=== PATIENT | female | born 1935 | race Caucasian/White ===

== ENCOUNTER → 2017-03-09 | Outpatient (CLI) | payer MEDICARE, OTHER ==
[2016-04-27 12:45] VITALS: BMI 20.2
[~2017-03-09] MED LIST: ACET-1748 PO; ACET-2007 PO; AMLO-96 PO; ASP325 PO; AZI250 PO; CEFU250 PO; CHOL10005 PO; CLI150 PO; DEN60I SUBQ; DESV50TA9 PO; DEXL60CA6 PO; DIA5 PO; DIG125 PO; DOC100 PO; DOCU-202 PO; DOXY-181 PO; DUL30 PO; DYA PO; ESOM40CA42 PO; EST625 PO; ESTR1.2525 PO; FLU45SYR25 IM ONLY; FURO-45 PO; FURO20TA19 PO; GAB300 PO; GABA25PO16; GUALA600 PO; IBU800 PO; LEV112 PO; LEV125 PO; LEV137 PO; LEVO-3 PO; LEVO112T43 PO; LEVO125T77 PO; LEVO137T21 PO; LEVO88TA45 PO; LID5T TP; LOR10/500 PO; LOR5 PO; LOR7.5/325 PO; MELO-207 PO; METO-1 PO; MIRT7.5T2 PO; MOMR ENA; MULT-1335 PO; OND4 PO; ONDA4TAB PO; ONDA4TAB97 PO; OSC600 PO; OXYC-373 PO; OXYC-374 PO; OXYC-375 PO; OXYC-865 PO; OXYC5TAB38 PO; OXYGEN INH; PAN40 PO; PANT40TA65 PO; PER PO; POLY17PO25 PO; POT20 PO; POTA-23 PO; POTA20TA94 PO; PRE10 PO; PROM-110 PO; PROM12.556 PO; PROM25SU9 RC; SIM10 PO; SIMV10TA98 PO; SUCR1ORA13 PO; SUCR1TAB51 PO; SUCR1TAB85 PO; SULF-198 PO; TEMA-1 PO; TRAM-420 PO; TRAM-627 PO; TRAZ50 PO; TRIA-20 PO; VALIUM; VARE1TAB18 PO; ZOLP-350 PO; [UNRECOGNIZED DRUG - CODE] PO; [UNRECOGNIZED DRUG - OTHER]
== END ==
LOC: AMB 11:30
PROVIDERS: ATTEND Nurse Practitioner
DX: R53.81 Other malaise (principal); R09.02 Hypoxemia
CPT/HCPCS: A0425; A0427

== ENCOUNTER → 2017-03-09 | Outpatient (CLI) | payer MEDICARE, OTHER ==
[2016-04-27 12:45] VITALS: BMI 20.2
== END ==
LOC: AMB 17:00
PROVIDERS: ATTEND Nurse Practitioner
DX: R79.89 Other specified abnormal findings of blood chemistry (principal); E87.6 Hypokalemia; J18.9 Pneumonia, unspecified organism
CPT/HCPCS: A0425; A0426; A0888

== ENCOUNTER → 2017-03-24 | Outpatient (CLI) | payer MEDICARE, OTHER ==
[2016-04-27 12:45] VITALS: BMI 20.2
[~2017-03-24] MED LIST changes: +ALBU8.5H IH; +CAR6.25 PO; +LISI-362 PO; +MIRT-27 PO; +ONDA4TAB9 PO; +UMEC1DIS INH
[2017-03-24 15:09] LABS: PLATELET COUNT, AUTOMATED 497 K/uL (150-450)
--- NOTE | 2017-03-24 15:34 | RADIOLOGY IMAGING REPORT ---
FACILITY: [facility] PATIENT NAME: Yanelis Leong : 1935 MR: [id number] V: [id number] EXAM DATE: ORDERING PHYSICIAN: ELIAS BARNES TECHNOLOGIST: Location: [facility] - [place] Patient: Yanelis Leong : 1935 Visit/Account:[id number] Date of Sevice: 03/24/2017 Exam type: CHEST PA AND LAT History: COPD, dehydration, hypothyroidism, pneumonia, CHF, smoker Comparison: March 09, 2017. Findings: Patchy consolidation in the right upper lobe appears slightly improved. There appears to be residual fibrotic changes which may be postsurgical or postradiation in nature. The appearance is similar to the prior study from April 26, 2016. Postsurgical changes of the right hilum and right hilar prom inence also appear stable. Emphysematous changes are noted throughout the lungs. The cardiac silhou ette is normal in size. There is an S-shaped scoliosis of the thoracal lumbar spine vertebroplasty c hanges in lumbar spine. Incompletely imaged are postsurgical changes lower lumbar spine as well IMPRESSION: 1. Chronic changes throughout the right lung with no evidence of acute pulmonary consolidation at th is time Report Dictated By: Natalia Cheung MD at 03/24/2017 3:27 PM Report E-Signed By: Natalia Cheung MD at 03/24/2017 3:30 PM WSN:[email or web address]
== END ==
LOC: LAB 14:06
PROVIDERS: ATTEND Internal Medicine
DX: E03.9 Hypothyroidism, unspecified (principal); R10.9 Unspecified abdominal pain; R60.9 Edema, unspecified; R09.02 Hypoxemia; J44.9 Chronic obstructive pulmonary disease, unspecified; J18.9 Pneumonia, unspecified organism; I50.9 Heart failure, unspecified
CPT/HCPCS: 36415; 71046; 81001; 82040; 82150; 82247; 82310; 82374; 82435; 82565; 82947; 83690; 83880; 84075; 84132; 84155; 84295; 84443; 84450; 84460; 84520; 85025

== ENCOUNTER → 2017-04-20 | Outpatient (CLI) | payer MEDICARE, OTHER ==
[2016-04-27 12:45] VITALS: BMI 20.2
[2017-04-20 15:47] LABS: PLATELET COUNT, AUTOMATED 413 K/uL (150-450)
== END ==
LOC: LAB 15:04
PROVIDERS: ATTEND Internal Medicine
DX: I50.9 Heart failure, unspecified (principal); K26.9 Duodenal ulcer, unspecified as acute or chronic, without hemorrhage or perforation; J44.9 Chronic obstructive pulmonary disease, unspecified; G89.29 Other chronic pain
CPT/HCPCS: 36415; 82040; 82247; 82310; 82374; 82435; 82565; 82947; 83880; 84075; 84132; 84155; 84295; 84443; 84450; 84460; 84520; 85025

== ENCOUNTER 2017-05-31 20:50 | Inpatient (IN) | payer MEDICARE, OTHER ==
[~2017-05-31] VITALS: Ht 162.6 cm; Wt 47.4 kg
[~2017-05-31 20:50] MED LIST changes: -ACET-2043 PO; -CELE100C79 PO; -LEVO50TA86 PO; -LIDO700A19 TP; -MELA3TAB31 PO
--- NOTE | 2017-05-31 20:53 | ER Report ---
History and Physical Time Seen By MD: 20:52 HPI/ROS CHIEF COMPLAINT: fall, right hip and leg pain HISTORY OF PRESENT ILLNESS: This is an 81 year old female. She slipped on some newspapers on her hardwood floors. Feet flew out from under her. Landed on right hip. Slightly hit head with small laceration by right eye. Did not lose consciousness. No neck or back pain. Normal sensation in extremities. No vision changes. No nausea or vomiting. REVIEW OF SYSTEMS: Constitutional: No weakness. Eyes: No visual changes or eye pain. ENT: No dental trauma. Respiratory: No chest wall pain, no shortness of breath. Cardiac: No palpitations. Gastrointestinal: No abdominal pain, no vomiting. Genitourinary: No hematuria. Musculoskeletal: As above. Skin: As above. Neurological: No headache. Allergies: Coded Allergies: codeine (Verified Allergy, Mild, UNKNOWN, 05/31/17) Patient states "That was so long ago" Home Meds Active Scripts Potassium Chloride (KLOR-CON 10) 10 Meq Tablet.er, 10 MEQ PO QODAY for with furosemide, #30 TAB 3 Refills Prov:YOLY SMITH MD 06/01/17 Furosemide (FUROSEMIDE) 20 Mg Tablet, 1 TAB PO QODAY, #30 TAB 3 Refills Prov:YOLY SMITH MD 06/01/17 Levothyroxine Sodium (LEVOTHYROXINE SODIUM) 100 Mcg Tablet, 100 MCG PO QDAY, # 30 TAB 6 Refills Prov:YOLY SMITH MD 06/01/17 Lisinopril (LISINOPRIL) 10 Mg Tablet, 10 MG PO QDAY, #30 TAB 5 Refills Prov:ELIAS BARNES MD 04/20/17 Carvedilol (CARVEDILOL) 6.25 Mg Tab, 0.5 TAB PO BID, #30 TAB 3 Refills Prov:ELIAS BARNES MD 04/20/17 Oxycodone Hcl (OXYCODONE HCL) 5 Mg Tablet, 5 MG PO QDAY Y for pain, #30 TAB Prov:ELIAS BARNES MD 04/20/17 Pantoprazole Sodium (PANTOPRAZOLE SODIUM) 40 Mg Tablet.dr, 40 MG PO QDAY, #30 TAB.SR 6 Refills Prov:ELIAS BARNES MD 04/20/17 Ondansetron (ONDANSETRON ODT) 4 Mg Tab.rapdis, 4 MG PO Q8H Y for nausea vomiting , #30 TAB 2 Refills Prov:ELIAS BARNES MD 03/24/17 Albuterol Sulfate 90 Mcg/Act (PROAIR HFA 90 MCG/ACT) 8.5 Gm Hfa.aer.ad, 2 PUFF IH Q4-6H Y for SHORTNESS OF BREATH, #1 INHALER 3 Refills Prov:ELIAS BARNES MD 03/24/17 Umeclidinium Brm/Vilanterol Tr (Anoro Ellipta 62.5-25 Mcg INH) 1 Each Disk.w.dev , 1 PUFF INH QDAY, #1 INHALER 6 Refills Prov:ELIAS BARNES MD 03/24/17 Reviewed Nurses Notes: Yes Hx Smoking: Yes (1/2-1 PACK DAILY) Smoking Status: Current: Every Day Smoker, Heavy Tobacco Smoker Exposure to Second Hand Smoke?: No Hx Substance Use Disorder: No Hx Alcohol Use: Yes Constitutional Vital Sign - Last 24 Hours 05/31/17 05/31/17 05/31/17 05/31/17 20:55 21:00 21:15 22:24 Temp 98.7 Pulse 141 116 124 Resp 16 24 15 22 B/P (MAP) 127/111 106/91 (96) 122/86 (98) Pulse Ox 92 100 95 O2 Delivery Nasal Cannula Nasal Cannula O2 Flow Rate 4 06/01/17 00:06 Pulse 116 Resp 14 B/P (MAP) 126/86 (99) Pulse Ox 94 O2 Delivery Nasal Cannula O2 Flow Rate 4 Physical Exam General Appearance: The patient is alert, has no immediate need for airway protection and no current signs of toxicity. Eyes: Pupils equal and round, no injection. ENT: No dental or oral trauma. Mucous membranes very dry. Tympanic membranes normal bilaterally Respiratory: Chest is non tender to palpation. Cardiac: Regular rate and rhythm. Gastrointestinal: Soft and non tender, there is no evidence of external or internal trauma by exam. Neurological: GCS 15. Alert and oriented x4. No focal deficits. Normal sensation in the right leg, has normal range of motion foot, ankle, but upper joints not tested due to pain in hip. Skin: No laceration or abrasions. Musculoskeletal: Head: Atraumatic without scalp tenderness. Neck: The cervical spine is non-tender and there is no pain with active range of motion. Back: There is no thoracic or lumbar spine or paraspinal tenderness. Pelvis: Non-tender, no laxity with pelvic pressure. Extremities: There is pain in the right hip and femur. No deformity or rotation noted. DIFFERENTIAL DIAGNOSIS: After history and physical exam differential diagnosis was considered for trauma from a fall. Concern for right hip/femur injury. Head injury with slight laceration as well. Medical Decision Making Data Points Result Diagram: 05/31/17 2348 05/31/17 2348 Laboratory Hematology Test 05/31/17 23:48 Red Blood Count 3.03 M/uL (4.17-5.56) Mean Corpuscular Volume 93.7 fL (80.0-96.0) Mean Corpuscular Hemoglobin 31.3 pg (26.0-33.0) Mean Corpuscular Hemoglobin Concent 33.4 g/dL (32.0-36.0) Red Cell Distribution Width 14.9 % (11.5-14.5) Mean Platelet Volume 7.9 fL (7.2-11.1) Neutrophils (%) (Auto) 88.5 % (39.4-72.5) Lymphocytes (%) (Auto) 5.3 % (17.6-49.6) Monocytes (%) (Auto) 5.8 % (4.1-12.4) Eosinophils (%) (Auto) 0.1 % (0.4-6.7) Basophils (%) (Auto) 0.3 % (0.3-1.4) Nucleated RBC Relative Count (auto) 0.1 /100WBC Neutrophils # (Auto) 12.8 K/uL (2.0-7.4) Lymphocytes # (Auto) 0.8 K/uL (1.3-3.6) Monocytes # (Auto) 0.8 K/uL (0.3-1.0) Eosinophils # (Auto) 0.0 K/uL (0.0-0.5) Basophils # (Auto) 0.0 K/uL (0.0-0.1) Nucleated RBC Absolute Count (auto) 0.01 K/uL Sodium Level 140 mmol/L (137-145) Potassium Level 2.3 mmol/L (3.5-5.0) Chloride Level 86 mmol/L (98-107) Carbon Dioxide Level 45 mmol/L (22-31) Blood Urea Nitrogen 15 mg/dl (7-18) Creatinine 1.00 mg/dl (0.52-1.04) Glomerular Filtration Rate Calc 53.2 Random Glucose 125 mg/dl (75-110) Calcium Level 8.0 mg/dl (8.4-10.2) Total Bilirubin 1.2 mg/dl (0.2-1.3) Aspartate Amino Transf (AST/SGOT) 61 U/L (0-35) Alanine Aminotransferase (ALT/SGPT) 52 U/L (0-56) Alkaline Phosphatase 222 U/L (0-126) Total Protein 6.5 gm/dl (6.3-8.2) Albumin 2.7 g/dl (3.5-5.0) Serum Alcohol < 10 mg/dl Chemistry Test 05/31/17 23:48 White Blood Count 14.4 k/uL (4.5-11.0) Red Blood Count 3.03 M/uL (4.17-5.56) Hemoglobin 9.5 g/dL (12.0-16.0) Hematocrit 28.4 % (34.0-47.0) Mean Corpuscular Volume 93.7 fL (80.0-96.0) Mean Corpuscular Hemoglobin 31.3 pg (26.0-33.0) Mean Corpuscular Hemoglobin Concent 33.4 g/dL (32.0-36.0) Red Cell Distribution Width 14.9 % (11.5-14.5) Platelet Count 388 K/uL (150-450) Mean Platelet Volume 7.9 fL (7.2-11.1) Neutrophils (%) (Auto) 88.5 % (39.4-72.5) Lymphocytes (%) (Auto) 5.3 % (17.6-49.6) Monocytes (%) (Auto) 5.8 % (4.1-12.4) Eosinophils (%) (Auto) 0.1 % (0.4-6.7) Basophils (%) (Auto) 0.3 % (0.3-1.4) Nucleated RBC Relative Count (auto) 0.1 /100WBC Neutrophils # (Auto) 12.8 K/uL (2.0-7.4) Lymphocytes # (Auto) 0.8 K/uL (1.3-3.6) Monocytes # (Auto) 0.8 K/uL (0.3-1.0) Eosinophils # (Auto) 0.0 K/uL (0.0-0.5) Basophils # (Auto) 0.0 K/uL (0.0-0.1) Nucleated RBC Absolute Count (auto) 0.01 K/uL Glomerular Filtration Rate Calc 53.2 Calcium Level 8.0 mg/dl (8.4-10.2) Total Bilirubin 1.2 mg/dl (0.2-1.3) Aspartate Amino Transf (AST/SGOT) 61 U/L (0-35) Alanine Aminotransferase (ALT/SGPT) 52 U/L (0-56) Alkaline Phosphatase 222 U/L (0-126) Total Protein 6.5 gm/dl (6.3-8.2) Albumin 2.7 g/dl (3.5-5.0) Serum Alcohol < 10 mg/dl Toxicology Test 05/31/17 23:48 Serum Alcohol < 10 mg/dl EKG/Imaging Imaging CHEST SINGLE AP Indication: Fall. Comparison: March 24, 2017. Findings: Heart size within normal limits. Calcification within the aortic knob. There is no focal infiltrate or lobar consolidation. No pneumothorax or pleural effusion. Chronic interstitial changes with biapical pleural scarring, right greater than left. Chronic elevation of the right hemidiaphragm. Note is made of kyphoplasty/vertebroplasty changes within the lumbar spine. No gross acute osseous abnormality. IMPRESSION: 1. No acute cardiopulmonary process. 2. Chronic findings, as above. Report Dictated By: Antoni Crain MD at 05/31/2017 10:25 PM HEAD W/O CONTRAST, C-SPINE W/O CONTRAST CT BRAIN WITHOUT CONTRAST CLINICAL INDICATION: Fall. COMPARISON: CT head dated March 09, 2017. TECHNIQUE: Contiguous axial CT images of the brain and cervical spine were obtained without IV contrast. Sagittal and coronal reformatted images were also performed. One of the following dose optimization techniques was utilized in the performance of this exam: Automated exposure control; adjustment of the mA and/ or kV according to the patient's size; or use of an iterative reconstruction technique. Specific details can be referenced in the facility's radiology CT exam operational policy. FINDINGS: BRAIN: BRAIN:Prominence of the ventricles and sulci is consistent with atrophy. There are areas of low attenuation in the periventricular and subcortical white matter which are nonspecific, but suggestive of chronic microvascular ischemic change. The brainstem and cerebellum appear normal. The basilar cisterns appear normal. There is no mass, acute infarct, hemorrhage or shift of midline. Vascular atherosclerotic calcifications are present. PARANASAL SINUSES & MASTOIDS: Mild/moderate mucosal thickening within the ethmoid air cells, sphenoid sinus, and right maxillary sinus. There is an air- fluid level within the sphenoid sinus. Note is made of a left maxillary antrostomy.. SKULL BASE & CRANIUM: Visualized osseous structures are intact. SOFT TISSUES: No soft tissue swelling or hematoma is appreciated. CERVICAL SPINE: Alignment: Normal. Cranio-cervical junction: Negative. Vertebral bodies: Negative. Posterior elements: Negative. Hardware: None. Disc Spaces: Multilevel mild degenerative disc disease and facet arthropathy. Soft tissues: Negative. Visualized upper chest: Moderate biapical pleural scarring. Mild/moderate emphysematous changes within the visualized upper lobes. IMPRESSION 1. No acute findings of the head or cervical spine.. 2. Findings of advanced chronological age. Report Dictated By: Antoni Crain MD at 05/31/2017 10:21 PM HIP RIGHT, FEMUR RIGHT Indication: Follow-up right hip and leg pain. Comparison: Hip radiographs dated March 09, 2017. Findings: There is no acute fracture or dislocation of the right hip or right femur. There is a mildly comminuted fracture of the superior right pubic ramus without significant displacement. Questionable subtle nondisplaced fracture of the inferior pubic ramus. There are possible chronic bilateral inferior pubic rami fractures. Degenerative changes within the lumbar spine. Fusion hardware within the lower lumbar spine. IMPRESSION: 1. Mildly comminuted fracture of the superior right pubic ramus. 2. Questionable subtle nondisplaced fracture of the inferior right pubic ramus. 3. No visualized fractures of the right hip or femur. Report Dictated By: Antoni Crain MD at 05/31/2017 10:10 PM ED Course/Re-evaluation ED Course Images were obtained. CT scan of the head and cervical spine were negative. Chest x-ray with no acute cardiopulmonary processes. Right hip and right femur showed a inferior and superior right pubic rami fractures, but negative for hip fracture. After these were obtained, we gave the patient a Lortab to help with pain and then after a while attempted to have her walk with a walker. She was able to stand and sit in a chair but is unable to walk because of instability and pain. I called and spoke with Dr. Smith who agreed to admit the patient. We will get some basic labs and a urinalysis. Procedure: Laceration Repair Verbal consent from patient after discussing repair options, risks and benefits. Wound cleaned extensively with Hibiclens and saline. Anesthesia: Local 1% lidocaine without epinephrine. Location: Lateral right eyebrow. Length: 2 cm. Character: Jagged. Wound repair: 3 interrupted 5-0 Prolene sutures. The wound repair was simple and performed by myself. Wound care instructions discussed. Sutures need to be removed in 7 days. Tetanus booster given. Labs were obtained and showed a low potassium. Called and discussed this with Dr. Smith who will begin treatment for this on the medical floor. Decision to Disposition Date: May 31, 2017 Decision to Disposition Time: 23:25 Depart Departure Latest Vital Signs Vital Signs Date Time Temp Pulse Resp B/P (MAP) Pulse Ox O2 Delivery O2 Flow Rate FiO2 06/01/17 00:06 116 14 126/86 (99) 94 Nasal Cannula 4 05/31/17 20:55 98.7 Impression: Primary Impression: Fracture of superior pubic ramus Additional Impressions: Fracture of inferior pubic ramus Fall from standing Laceration of eyebrow Condition: Improved Disposition: Admitted from ER Referrals: ELIAS BARNES MD (PCP) New Scripts Potassium Chloride (KLOR-CON 10) 10 Meq Tablet.er 10 MEQ PO QODAY for with furosemide, #30 TAB 3 Refills Prov: YOLY SMITH MD 06/01/17 Furosemide (FUROSEMIDE) 20 Mg Tablet 1 TAB PO QODAY, #30 TAB 3 Refills Prov: YOLY SMITH MD 06/01/17 Levothyroxine Sodium (LEVOTHYROXINE SODIUM) 100 Mcg Tablet 100 MCG PO QDAY, #30 TAB 6 Refills Prov: YOLY SMITH MD 06/01/17 Problem Qualifiers Primary Impression: Fracture of superior pubic ramus Encounter type: initial encounter Fracture type: closed Laterality: right Qualified Codes: S32.511A - Fracture of superior rim of right pubis, initial encounter for closed fracture Additional Impressions: Fracture of inferior pubic ramus Encounter type: initial encounter Fracture type: closed Laterality: right Qualified Codes: S32.591A - Other specified fracture of right pubis, initial encounter for closed fracture Fall from standing Encounter type: initial encounter Qualified Codes: W19.XXXA - Unspecified fall, initial encounter Laceration of eyebrow Encounter type: initial encounter Laterality: right Qualified Codes: S01.111A - Laceration without foreign body of right eyelid and periocular area, initial encounter PRADEEP POWELL MD May 31, 2017 20:53
--- NOTE | 2017-05-31 22:22 | RADIOLOGY IMAGING REPORT ---
FACILITY: [facility] - [place] PATIENT NAME: Yanelis Leong : 1935 MR: [id number] V: [id number] EXAM DATE: ORDERING PHYSICIAN: PRADEEP POWELL TECHNOLOGIST: Location: [facility] - [place] Patient: Yanelis Leong : 1935 Visit/Account:[id number] Date of Sevice: 05/31/2017 HIP RIGHT, FEMUR RIGHT Indication: Follow-up right hip and leg pain. Comparison: Hip radiographs dated March 09, 2017. Findings: There is no acute fracture or dislocation of the right hip or right femur. There is a mildly comminut ed fracture of the superior right pubic ramus without significant displacement. Questionable subtle n ondisplaced fracture of the inferior pubic ramus. There are possible chronic bilateral inferior pubic rami fractures. Degenerative changes within the lumbar spine. Fusion hardware within the lower lumbar spine. IMPRESSION: 1. Mildly comminuted fracture of the superior right pubic ramus. 2. Questionable subtle nondisplaced fracture of the inferior right pubic ramus. 3. No visualized fractures of the right hip or femur. Report Dictated By: Antoni Crain MD at 05/31/2017 10:10 PM Report E-Signed By: Antoni Crain MD at 05/31/2017 10:17 PM WSN:[id number]
--- NOTE | 2017-05-31 22:23 | RADIOLOGY IMAGING REPORT ---
FACILITY: [facility] - [place] PATIENT NAME: Yanelis Leong : 1935 MR: [id number] V: [id number] EXAM DATE: ORDERING PHYSICIAN: PRADEEP POWELL TECHNOLOGIST: Location: [facility] [place] Patient: Yanelis Leong : 1935 Visit/Account:[id number] Date of Sevice: 05/31/2017 HIP RIGHT, FEMUR RIGHT Indication: Follow-up right hip and leg pain. Comparison: Hip radiographs dated March 09, 2017. Findings: There is no acute fracture or dislocation of the right hip or right femur. There is a mildly comminut ed fracture of the superior right pubic ramus without significant displacement. Questionable subtle n ondisplaced fracture of the inferior pubic ramus. There are possible chronic bilateral inferior pubic rami fractures. Degenerative changes within the lumbar spine. Fusion hardware within the lower lumbar spine. IMPRESSION: 1. Mildly comminuted fracture of the superior right pubic ramus. 2. Questionable subtle nondisplaced fracture of the inferior right pubic ramus. 3. No visualized fractures of the right hip or femur. Report Dictated By: Antoni Crain MD at 05/31/2017 10:10 PM Report E-Signed By: Antoni Crain MD at 05/31/2017 10:17 PM WSN:[id number]
--- NOTE | 2017-05-31 22:29 | RADIOLOGY IMAGING REPORT ---
FACILITY: [facility] PATIENT NAME: Yanelis Leong : 1935 MR: [id number] V: [id number] EXAM DATE: ORDERING PHYSICIAN: PRADEEP POWELL TECHNOLOGIST: Location: [facility] [place] Patient: Yanelis Leong : 1935 Visit/Account:[id number] Date of Sevice: 05/31/2017 HEAD W/O CONTRAST, C-SPINE W/O CONTRAST CT BRAIN WITHOUT CONTRAST CLINICAL INDICATION: Fall. COMPARISON: CT head dated March 09, 2017. TECHNIQUE: Contiguous axial CT images of the brain and cervical spine were obtained without IV contra st. Sagittal and coronal reformatted images were also performed. One of the following dose optimization techniques was utilized in the performance of this exam: Autom ated exposure control; adjustment of the mA and/or kV according to the patient's size; or use of an i terative reconstruction technique. Specific details can be referenced in the facility's radiology C T exam operational policy. FINDINGS: BRAIN: BRAIN:Prominence of the ventricles and sulci is consistent with atrophy. There are areas of low atten uation in the periventricular and subcortical white matter which are nonspecific, but suggestive of c hronic microvascular ischemic change. The brainstem and cerebellum appear normal. The basilar cister ns appear normal. There is no mass, acute infarct, hemorrhage or shift of midline. Vascular atheroscl erotic calcifications are present. PARANASAL SINUSES & MASTOIDS: Mild/moderate mucosal thickening within the ethmoid air cells, sphenoid sinus, and right maxillary sinus. There is an air-fluid level within the sphenoid sinus. Note is mad e of a left maxillary antrostomy.. SKULL BASE & CRANIUM: Visualized osseous structures are intact. SOFT TISSUES: No soft tissue swelling or hematoma is appreciated. CERVICAL SPINE: Alignment: Normal. Cranio-cervical junction: Negative. Vertebral bodies: Negative. Posterior elements: Negative. Hardware: None. Disc Spaces: Multilevel mild degenerative disc disease and facet arthropathy. Soft tissues: Negative. Visualized upper chest: Moderate biapical pleural scarring. Mild/moderate emphysematous changes withi n the visualized upper lobes. IMPRESSION 1. No acute findings of the head or cervical spine.. 2. Findings of advanced chronological age. Report Dictated By: Antoni Crain MD at 05/31/2017 10:21 PM Report E-Signed By: Antoni Crain MD at 05/31/2017 10:25 PM WSN:[id number]
--- NOTE | 2017-05-31 22:29 | RADIOLOGY IMAGING REPORT ---
FACILITY: [facility] PATIENT NAME: Yaenlis Leong : 1935 MR: [id number] V: [id number] EXAM DATE: ORDERING PHYSICIAN: PRADEEP POWELL TECHNOLOGIST: Location: [facility] Patient: Yanelis Leong : 1935 Visit/Account:[id number] Date of Sevice: 05/31/2017 HEAD W/O CONTRAST, C-SPINE W/O CONTRAST CT BRAIN WITHOUT CONTRAST CLINICAL INDICATION: Fall. COMPARISON: CT head dated March 09, 2017. TECHNIQUE: Contiguous axial CT images of the brain and cervical spine were obtained without IV contra st. Sagittal and coronal reformatted images were also performed. One of the following dose optimization techniques was utilized in the performance of this exam: Autom ated exposure control; adjustment of the mA and/or kV according to the patient's size; or use of an i terative reconstruction technique. Specific details can be referenced in the facility's radiology C T exam operational policy. FINDINGS: BRAIN: BRAIN:Prominence of the ventricles and sulci is consistent with atrophy. There are areas of low atten uation in the periventricular and subcortical white matter which are nonspecific, but suggestive of c hronic microvascular ischemic change. The brainstem and cerebellum appear normal. The basilar cister ns appear normal. There is no mass, acute infarct, hemorrhage or shift of midline. Vascular atheroscl erotic calcifications are present. PARANASAL SINUSES & MASTOIDS: Mild/moderate mucosal thickening within the ethmoid air cells, sphenoid sinus, and right maxillary sinus. There is an air-fluid level within the sphenoid sinus. Note is mad e of a left maxillary antrostomy.. SKULL BASE & CRANIUM: Visualized osseous structures are intact. SOFT TISSUES: No soft tissue swelling or hematoma is appreciated. CERVICAL SPINE: Alignment: Normal. Cranio-cervical junction: Negative. Vertebral bodies: Negative. Posterior elements: Negative. Hardware: None. Disc Spaces: Multilevel mild degenerative disc disease and facet arthropathy. Soft tissues: Negative. Visualized upper chest: Moderate biapical pleural scarring. Mild/moderate emphysematous changes withi n the visualized upper lobes. IMPRESSION 1. No acute findings of the head or cervical spine.. 2. Findings of advanced chronological age. Report Dictated By: Antoni Crain MD at 05/31/2017 10:21 PM Report E-Signed By: Antoni Crain MD at 05/31/2017 10:25 PM WSN:[email or web address]
--- NOTE | 2017-05-31 22:30 | RADIOLOGY IMAGING REPORT ---
FACILITY: [facility] [place] PATIENT NAME: Yanelis Leong : 1935 MR: [id number] V: [id number] EXAM DATE: ORDERING PHYSICIAN: PRADEEP POWELL TECHNOLOGIST: Location: [facility] [place] Patient: Yanelis Leong : 1935 Visit/Account:[id number] Date of Sevice: 05/31/2017 CHEST SINGLE AP Indication: Fall. Comparison: March 24, 2017. Findings: Heart size within normal limits. Calcification within the aortic knob. There is no focal infiltrate or lobar consolidation. No pneumothorax or pleural effusion. Chronic interstitial changes with biapical pleural scarring, ri ght greater than left. Chronic elevation of the right hemidiaphragm. Note is made of kyphoplasty/vertebroplasty changes within the lumbar spine. No gross acute osseous abnormality. IMPRESSION: 1. No acute cardiopulmonary process. 2. Chronic findings, as above. Report Dictated By: Antoni Crain MD at 05/31/2017 10:25 PM Report E-Signed By: Antoni Crain MD at 05/31/2017 10:26 PM WSN:[email or web address]
[2017-05-31] MEDS ORDERED: APAP/HYDROCODONE 325/5 TAB PO ONE (22:35)
[2017-05-31] MEDS ORDERED: DIPHTH/TETANUS/ACEL. PERTUSSIS IM ONLY ONE (23:45)
[2017-05-31 23:57] LABS: PLATELET COUNT, AUTOMATED 388 K/uL (150-450)
[2017-06-01] VITALS (7 sets, daily range): BP systolic 94–116; BP diastolic 48–75; Ht 162.6 cm; Wt 47.4 kg
[2017-06-01] MEDS ORDERED: ACETAMINOPHEN 325 MG TAB PO PRN (01:20)
[2017-06-01] MEDS ORDERED: INFLUENZA VIRUS VAC 0.5 ML SYR IM ONLY ONE (01:20)
--- NOTE | 2017-06-01 01:40 | History & Physical ---
History of Present Illness Chief Complaint Fall, R leg/hip pain. History of Present Illness The patient is an 81 year old female who states that she slipped on newspaper lying on her hardwood floor this evening and fell, injuring her R leg. She crawled to her bedroom and called for help. She denies chest pain, dizziness, palpitations or lightheadedness prior to falling. She was transferred to [facility] ER. Work up revealed fractures of the pelvis. The patient was recommended for admission. The patient was found to be significantly hypokalemic at 2.3. When she arrived on the medical floor she was found to be in new onset a fib with RVR. History Problems: (1) COPD (chronic obstructive pulmonary disease) Status: Chronic (2) Edema Status: Chronic (3) Hyperlipidemia Status: Chronic (4) GERD (gastroesophageal reflux disease) Status: Chronic (5) Sleep apnea Status: Chronic (6) Peripheral neuropathy Status: Chronic (7) Irritable bowel syndrome Status: Chronic (8) Hypoxia Status: Chronic (9) Depression Status: Chronic (10) Hypertension Status: Chronic (11) Hypothyroid Status: Chronic (12) Tobacco abuse (13) CHF (congestive heart failure) Status: Chronic (14) Elevated liver enzymes Status: Chronic (15) History of alcohol abuse Status: Chronic (16) Alcoholic dementia Status: Chronic (17) Diastolic CHF, chronic Status: Chronic Home Meds Active Scripts Levothyroxine Sodium (LEVOTHYROXINE SODIUM) 100 Mcg Tablet, 75 MCG PO QDAY, #30 TAB 6 Refills Prov:ELIAS BERNSTEIN MD 04/21/17 Potassium Chloride (KLOR-CON 10) 10 Meq Tablet.er, 10 MEQ PO QODAY for with furosemide, #30 TAB 3 Refills 1 every day for 3 days then every other day Prov:ELIAS BERNSTEIN MD 04/20/17 Furosemide (FUROSEMIDE) 20 Mg Tablet, 1 TAB PO QODAY Y for edema, #30 TAB 3 Refills Prov:ELIAS BERNSTEIN MD 04/20/17 Lisinopril (LISINOPRIL) 10 Mg Tablet, 10 MG PO QDAY, #30 TAB 5 Refills Prov:ELIAS BERNSTEIN MD 04/20/17 Carvedilol (CARVEDILOL) 6.25 Mg Tab, 0.5 TAB PO BID, #30 TAB 3 Refills Prov:ELIAS BERNSTEIN MD 04/20/17 Oxycodone Hcl (OXYCODONE HCL) 5 Mg Tablet, 5 MG PO QDAY Y for pain, #30 TAB Prov:ELIAS BERNSTEIN MD 04/20/17 Pantoprazole Sodium (PANTOPRAZOLE SODIUM) 40 Mg Tablet.dr, 40 MG PO QDAY, #30 TAB.SR 6 Refills Prov:ELIAS BERNSTEIN MD 04/20/17 Ondansetron (ONDANSETRON ODT) 4 Mg Tab.rapdis, 4 MG PO Q8H Y for nausea vomiting , #30 TAB 2 Refills Prov:ELIAS BERNSTEIN MD 03/24/17 Albuterol Sulfate 90 Mcg/Act (PROAIR HFA 90 MCG/ACT) 8.5 Gm Hfa.aer.ad, 2 PUFF IH Q4-6H Y for SHORTNESS OF BREATH, #1 INHALER 3 Refills Prov:ELIAS BERNSTEIN MD 03/24/17 Umeclidinium Brm/Vilanterol Tr (Anoro Ellipta 62.5-25 Mcg INH) 1 Each Disk.w.dev , 1 PUFF INH QDAY, #1 INHALER 6 Refills Prov:ELIAS BERNSTEIN MD 03/24/17 Allergies: Coded Allergies: codeine (Verified Allergy, Mild, UNKNOWN, 05/31/17) Patient states "That was so long ago" Patient History: Cardiac disorder SISTER (Heart valve problem), , Age:29 Cerebrovascular accident (CVA) BROTHER OR SISTER, , Age:82 FH: AR (myocardial infarction) BROTHER OR SISTER FH: Parkinson's disease FH: cancer BROTHER OR SISTER, , Age:37 FH: suicide BROTHER OR SISTER, , Age:30's - 40 BROTHER OR SISTER, , Age:30's - 40 Neurological disease No family history of disorders CHILD Systemic lupus erythematosus CHILD No Family History of: FH: alcohol abuse FH: coronary artery bypass surgery FH: emphysema FHx: diabetes mellitus Other Social/Family Hx The patient is and lives alone in [place]. Hx Smoking: Yes (1 PACK DAILY) Smoking Status: Current: Every Day Smoker, Heavy Tobacco Smoker Exposure to Second Hand Smoke?: No Caffeine Intake: Coffee Caffeine/Cups Per Day: OCCAISIONALLY Hx Alcohol Use: Yes Hx Substance Use Disorder: No Social Drug Use: Never History of IV Drug Use: No Review of Systems All Systems Reviewed/Normal: Yes, Except as Noted Neurological: No Dizziness Eyes: No Vision Change ENT: No Hearing Loss Cardiovascular: Other (Lower extremitity edema.), No Chest Pain, No Palpitations Respiratory: No Shortness of Breath Gastrointestinal: No Nausea, No Vomiting, No Diarrhea Genitourinary: No Dysuria Musculoskeletal: Pain (Back, chronic. New pain in R leg after fall tonight.) Psychiatric: Depression Exam Vital Signs Vital Signs Date Time Temp Pulse Resp B/P (MAP) Pulse Ox O2 Delivery O2 Flow Rate FiO2 06/01/17 00:31 98.2 92 14 103/68 (80) 100 Nasal Cannula 4.0 General Appearance: Alert, Awake, No Acute Distress, Afebrile Neuro: No Gross deficits Eyes: PERRLA ENT: Other (Lips are dry. ) Neck: No Masses Cardiovascular: No JVD, Other (Irregularly irregular, tachycardic.) Respiratory: No Respiratory Distress, Clear to Auscultation GI: Abd Soft and Non-Tender Extremities: Warm, Perfused, Edema (Feet and ankles with pitting edema. ) Integumentary: Generalized Fragile Skin Psych: Alert & Oriented X3, Appropriate Mood & Affect Medical Decision Making Data Points Result Diagram: 05/31/178 05/31/172347 Item Value Date Time Calcium Level 8.0 mg/dl L 05/31/172347 Total Bilirubin 1.2 mg/dl 05/31/178 Aspartate Amino Transf (AST/SGOT) 61 U/L H 05/31/178 Alanine Aminotransferase (ALT/SGPT) 52 U/L 05/31/178 Alkaline Phosphatase 222 U/L H 05/31/178 Total Protein 6.5 gm/dl 05/31/178 Albumin 2.7 g/dl L 05/31/172347 Serum Alcohol < 10 mg/dl 05/31/172347 EKG / Imaging Imaging [place] [facility] [place] NAME: Yanelis Leong : 1935 MR: [id number] V: [id number] EXAM DATE: ORDERING PHYSICIAN: PRADEEP POWELL TECHNOLOGIST: Location: [facility] Patient: Yanelis Leong : 1935 Visit/Account:[id number] Date of Sevice: 05/31/2017 HEAD W/O CONTRAST, C-SPINE W/O CONTRAST CT BRAIN WITHOUT CONTRAST CLINICAL INDICATION: Fall. COMPARISON: CT head dated March 09, 2017. TECHNIQUE: Contiguous axial CT images of the brain and cervical spine were obtained without IV contrast. Sagittal and coronal reformatted images were also performed. One of the following dose optimization techniques was utilized in the performance of this exam: Automated exposure control; adjustment of the mA and/ or kV according to the patient's size; or use of an iterative reconstruction technique. Specific details can be referenced in the facility's radiology CT exam operational policy. FINDINGS: BRAIN: BRAIN:Prominence of the ventricles and sulci is consistent with atrophy. There are areas of low attenuation in the periventricular and subcortical white matter which are nonspecific, but suggestive of chronic microvascular ischemic change. The brainstem and cerebellum appear normal. The basilar cisterns appear normal. There is no mass, acute infarct, hemorrhage or shift of midline. Vascular atherosclerotic calcifications are present. PARANASAL SINUSES & MASTOIDS: Mild/moderate mucosal thickening within the ethmoid air cells, sphenoid sinus, and right maxillary sinus. There is an air- fluid level within the sphenoid sinus. Note is made of a left maxillary antrostomy.. SKULL BASE & CRANIUM: Visualized osseous structures are intact. SOFT TISSUES: No soft tissue swelling or hematoma is appreciated. CERVICAL SPINE: Alignment: Normal. Cranio-cervical junction: Negative. Vertebral bodies: Negative. Posterior elements: Negative. Hardware: None. Disc Spaces: Multilevel mild degenerative disc disease and facet arthropathy. Soft tissues: Negative. Visualized upper chest: Moderate biapical pleural scarring. Mild/moderate emphysematous changes within the visualized upper lobes. IMPRESSION 1. No acute findings of the head or cervical spine.. 2. Findings of advanced chronological age. Report Dictated By: Antoni Crain MD at 05/31/2017 10:21 PM Report E-Signed By: Antoni Crain MD at 05/31/2017 10:25 PM WSN:[id number] [place] [facility] [place]IENT NAME: Yanelis Leong : 1935 MR: [id number] V: [id number] EXAM DATE: ORDERING PHYSICIAN: PRADEEP POWELL TECHNOLOGIST: Location: [facility] Patient: Yanelis Leong : 1935 Visit/Account:[id number] Date of Sevice: 05/31/2017 CHEST SINGLE AP Indication: Fall. Comparison: March 24, 2017. Findings: Heart size within normal limits. Calcification within the aortic knob. There is no focal infiltrate or lobar consolidation. No pneumothorax or pleural effusion. Chronic interstitial changes with biapical pleural scarring, right greater than left. Chronic elevation of the right hemidiaphragm. Note is made of kyphoplasty/vertebroplasty changes within the lumbar spine. No gross acute osseous abnormality. IMPRESSION: 1. No acute cardiopulmonary process. 2. Chronic findings, as above. Report Dictated By: Antoni Crain MD at 05/31/2017 10:25 PM Report E-Signed By: Antoni Crain MD at 05/31/2017 10:26 PM WSN:[id number] [place] [facility] [place]IENT NAME: Yanelis Leong : 1935 MR: [id number] V: [id number] EXAM DATE: ORDERING PHYSICIAN: PRADEEP POWELL TECHNOLOGIST: Location: [facility] Patient: Yanelis Leong : 1935 Visit/Account:[id number] Date of Sevice: 05/31/2017 HIP RIGHT, FEMUR RIGHT Indication: Follow-up right hip and leg pain. Comparison: Hip radiographs dated March 09, 2017. Findings: There is no acute fracture or dislocation of the right hip or right femur. There is a mildly comminuted fracture of the superior right pubic ramus without significant displacement. Questionable subtle nondisplaced fracture of the inferior pubic ramus. There are possible chronic bilateral inferior pubic rami fractures. Degenerative changes within the lumbar spine. Fusion hardware within the lower lumbar spine. IMPRESSION: 1. Mildly comminuted fracture of the superior right pubic ramus. 2. Questionable subtle nondisplaced fracture of the inferior right pubic ramus. 3. No visualized fractures of the right hip or femur. Report Dictated By: Antoni Crain MD at 05/31/2017 10:10 PM Report E-Signed By: Antoni Crain MD at 05/31/2017 10:17 PM WSN:[id number] Pre-Admit Course Medical Record Review: Yes Assessment and Plan Problems: (1) Fracture of superior pubic ramus Status: Acute Assessment & Plan: Will have PT/OT see in am. Will place on Lortab for pain. Orthopedic surgery consult in am (need to call). (2) Fall from standing Status: Acute Assessment & Plan: She did hit her head with her fall and required stitches next to her eyebrow. Will monitor. Hold Lovenox for DVT prophylaxis due to head injury. (3) Atrial fibrillation with RVR Status: Acute Assessment & Plan: Will place on telemetry and monitor. Replace potassium. Magnesium pending. (4) Hypokalemia Status: Acute Assessment & Plan: Potassium is 2.3. Will give K-rider 40meq over [address] 20 meq of KCl in her IV fluid. Recheck BMP in 4 hours. (5) COPD (chronic obstructive pulmonary disease) Status: Chronic Assessment & Plan: The patient takes Proair and Anoro Ellipta at home per Dr. Bernstein's record. She is supposed to be on O2 11/10 but often presents to his clinic without O2. Sats are often in the 70s off of oxygen per Dr. Bernstein's office records. (6) Edema Status: Chronic Assessment & Plan: The patient reports she takes Lasix 20mg prn for edema. Per Dr. Bernstein's records she has potassium chloride 10meq daily as well. (7) Hypertension Status: Chronic Assessment & Plan: Per Dr. Bernstein's record sheis on carvedilol 6.25mg, 1/2 tab bid and lisinopril 10mg daily. (8) Hypothyroid Status: Chronic Assessment & Plan: Per Dr. Bernstein's record she takes levothyroxine 100mcg daily. (9) GERD (gastroesophageal reflux disease) Status: Chronic Assessment & Plan: Per Dr. Bernstein's records she is on pantoprazole 40mg daily. (10) Depression Status: Chronic Assessment & Plan: Per Dr. Bernstein's records the patient is on mirtazapine rapidis 15mg at . (11) Noncompliance Status: Chronic Assessment & Plan: Per Dr. Bernstein's notes, the patient does not take her prescription medications regularly. She also does not use her oxygen continuously as prescribed and is often hypoxic when she arrives at his clinic. The patient was unable to tell us what medications she takes and her med reconciliation was taken from Dr. Bernstein's office notes and the external med history. (12) Diastolic CHF, chronic Status: Chronic Assessment & Plan: Echo done at [facility] 03/10/17 showed EF of 55-60%. Also noted were mild MR, mild TR, R ventricular systolic pressure of 45-50mmHg and grade II/ diastolic dysfunction. Continue carvedilol and lisinopril. (13) Alcoholic dementia Status: Chronic Assessment & Plan: She is felt to have chronic alcoholic dementia per records reviewed from [facility]. Time Spent on Plan of Care: < 30 min Copies to: ELIAS BERNSTEIN MD Venous Thromboembolism Antithrombotics Is Pt On Any Antithrombotics?: No Prophylaxis Tx Contraindicated Pharmacological Contraindicati: Medical Contraindication (Recent head trauma.) Exam Sepsis Risk: No Definite Risk Problem Qualifiers (1) Fracture of superior pubic ramus: Encounter type: initial encounter Fracture type: closed Laterality: right Qualified Codes: S32.511A - Fracture of superior rim of right pubis, initial encounter for closed fracture (2) Fall from standing: Encounter type: initial encounter Qualified Codes: W19.XXXA - Unspecified fall, initial encounter YOLY SIN MD Jun 01, 2017 01:40
[2017-06-01] MEDS: KCL/NS* 20 MEQ/1000 ML PREMIX 1,000 ML IV SCH ×4 (01:41→23:04)
[2017-06-01] MEDS: KCL (*) 20 MEQ/100 ML PREMIX 100 ML IV SCH ×4 (01:42→14:08)
[2017-06-01] MEDS ORDERED: MAGNESIUM SUL* 4 GM/100 ML BAG 100 ML IVPB ONE (02:15)
[2017-06-01] MEDS ORDERED: LEVO-3 PO (02:38)
[2017-06-01] MEDS ORDERED: ALBUTEROL SULFATE 90 MCG/ACT 8.5 GM HNH INH PRN (02:40)
[2017-06-01] MEDS ORDERED: FURO-45 PO (02:41)
[2017-06-01] MEDS ORDERED: POTA-23 PO (02:41)
--- NOTE | 2017-06-01 02:49 | EKG ---
[place] [facility] [place] NAME: SARAI DORANTES : [id number] MR: [id number] V: [id number] EXAM DATE: ORDERING PHYSICIAN: YOLY SIN TECHNOLOGIST: ANTON Fatima Reason : IRREGULAR RHYTHM Blood Pressure : / mmHG Vent. Rate : 115 BPM Atrial Rate : 129 BPM P-R Int : 000 ms QRS Dur : 068 ms QT Int : 392 ms P-R-T Axes : 000 069 -61 degrees QTc Int : 542 ms Atrial fibrillation with rapid ventricular response Nonspecific ST and T wave abnormality Abnormal ECG Confirmed by YOLY ASTORGA ([id number]) on 06/01/2017 6:51:10 AM Referred By: Confirmed By:YOLY ASTORGA
[2017-06-01 06:14] LABS: PLATELET COUNT, AUTOMATED 314 K/uL (150-450)
[2017-06-01] MEDS: PANTOPRAZOLE SOD 40 MG TABEC PO SCH (08:47)
[2017-06-01] MEDS: LISINOPRIL 10 MG TAB PO SCH (08:47)
[2017-06-01] MEDS: CARVEDILOL 6.25 MG TAB PO SCH ×2 (08:48→20:30)
[2017-06-01] MEDS: LEVOTHYROXINE SOD 0.1 MG TAB PO SCH (08:48)
--- NOTE | 2017-06-01 09:02 | Miscellaneous Provider Note ---
Miscellaneous Provider Note Note Potassium remains low this am at 2.8. Magnesium low at 1.0. She will receive 4g magnesium IV and 40meq of potassium IV with repeat BMP at 1400. Message left with Dr. Lamar to review x-rays and make recommendations regarding treatment and rehab. YOLY SIN MD Jun 01, 2017 09:02
[2017-06-01] MEDS: APAP/HYDROCODONE 325/5 TAB PO PRN ×2 (10:30→18:28)
[2017-06-01] MEDS ORDERED: KCL (*) 20 MEQ/100 ML PREMIX 100 ML IV SCH (16:40)
[2017-06-02 03:10] VITALS: BP 135/67
[2017-06-02] MEDS: APAP/HYDROCODONE 325/5 TAB PO PRN (06:12)
[2017-06-02 06:35] LABS: PLATELET COUNT, AUTOMATED 339 K/uL (150-450)
[2017-06-02 07:45] VITALS: BP 103/49
[2017-06-02] MEDS: PANTOPRAZOLE SOD 40 MG TABEC PO SCH (09:04)
[2017-06-02] MEDS: LEVOTHYROXINE SOD 0.1 MG TAB PO SCH (09:04)
[2017-06-02] MEDS: CARVEDILOL 6.25 MG TAB PO SCH ×2 (09:05→22:31)
[2017-06-02] MEDS: LISINOPRIL 10 MG TAB PO SCH (09:05)
[2017-06-02] MEDS: LIDOCAINE 5% PATCH TP SCH (10:07)
[2017-06-02 11:07] VITALS: BP 121/63
[2017-06-02] MEDS: oxyCODONE HCL 5 MG CAP PO PRN ×2 (11:32→22:31)
--- NOTE | 2017-06-02 14:32 | Hospitalist Progress Note ---
Subjective Progress Notes Subjective She is telling staff that she is in her office. She doesn't have any focal complaints. She is hungry Physical Exam Vital Signs Date Time Temp Pulse Resp B/P (MAP) Pulse Ox O2 Delivery O2 Flow Rate FiO2 06/02/17 11:07 97.7 92 20 121/63 (82) 90 Nasal Cannula 3.5 Intake and Output 06/03/17 07:00 Intake Total 0 ml Balance 0 ml Intake Oral 0 ml General Appearance: Alert, Awake, No Acute Distress Neuro: Other (She thinks she is in an office and it is 1979's. No focal motor deficits) Result Diagram: 06/02/17 0550 06/02/17 0550 Assessment and Plan Problems: (1) Fracture of superior pubic ramus Status: Acute Assessment & Plan: PT/OT seeing and recommending further rehab before going home. Oxycodone, Celebrex, APAP and Lidoderm for pain. Dr. Lamar (Ortho) looked at the films of the pelvis and said the patient could weight bear as tolerated. (2) Fall from standing Status: Acute Assessment & Plan: She did hit her head with her fall and required stitches next to her eyebrow. Will monitor. Hold Lovenox for DVT prophylaxis due to head injury. (3) Atrial fibrillation with RVR Status: Acute Assessment & Plan: On telemetry and monitor. Now appears to be in a sinus rhythm. Over replacement for hypothyroid, might be contributing. Echo in February at [facility] showed an EF of 55-6-% with grade II diastolic dysfunction. Continue Coreg. Holding any medication for stroke prophylaxis secondary to the recent head injury and the pubic ramus fracture. (4) Hypokalemia Status: Acute Assessment & Plan: Potassium is now 5.1. Will stop the IVF with KCL. Follow. (5) COPD (chronic obstructive pulmonary disease) Status: Chronic Assessment & Plan: The patient takes Proair and Anoro Ellipta at home per Dr. Bernstein's record. She is supposed to be on O2 24/ but often presents to his clinic without O2. Sats are often in the 70s off of oxygen per Dr. Bernstein's office records. (6) Edema Status: Chronic Assessment & Plan: The patient reports she takes Lasix 20mg prn for edema. Per Dr. Bernstein's records she has potassium chloride 10meq daily as well. (7) Hypertension Status: Chronic Assessment & Plan: Per Dr. Bernstein's record sheis on carvedilol 6.25mg, 1/2 tab bid and lisinopril 10mg daily. (8) Hypothyroid Status: Chronic Assessment & Plan: Per Dr. Bernstein's record she takes levothyroxine 100mcg daily. (9) GERD (gastroesophageal reflux disease) Status: Chronic Assessment & Plan: Per Dr. Bernstein's records she is on pantoprazole 40mg daily. (10) Depression Status: Chronic Assessment & Plan: Per Dr. Bernstein's records the patient is on mirtazapine rapidis 15mg at . (11) Noncompliance Status: Chronic Assessment & Plan: Per Dr. Bernstein's notes, the patient does not take her prescription medications regularly. She also does not use her oxygen continuously as prescribed and is often hypoxic when she arrives at his clinic. The patient was unable to tell us what medications she takes and her med reconciliation was taken from Dr. Bernstein's office notes and the external med history. (12) Diastolic CHF, chronic Status: Chronic Assessment & Plan: Echo done at [facility] 03/10/17 showed EF of 55-60%. Also noted were mild MR, mild TR, R ventricular systolic pressure of 45-50mmHg and grade II/ diastolic dysfunction. Continue carvedilol and lisinopril. (13) Alcoholic dementia Status: Chronic Assessment & Plan: She is felt to have chronic alcoholic dementia per records reviewed from [facility]. Exam Sepsis Risk: No Definite Risk Problem Qualifiers (1) Fracture of superior pubic ramus: Encounter type: initial encounter Fracture type: closed Laterality: right Qualified Codes: S32.511A - Fracture of superior rim of right pubis, initial encounter for closed fracture (2) Fall from standing: Encounter type: initial encounter Qualified Codes: W19.XXXA - Unspecified fall, initial encounter STU VASQUEZ MD Jun 02, 2017 14:32
[2017-06-02 14:58] VITALS: BP 125/68
[2017-06-02] MEDS: PATCH REMOVAL 1 EA TOP SCH (21:00)
[2017-06-02 22:19] VITALS: BP 178/95
[2017-06-02] MEDS: CELECOXIB 100 MG CAP PO PRN (22:31)
[2017-06-02] MEDS: MELATONIN 3 MG TAB PO SCH (22:32)
[2017-06-03 04:42] VITALS: BP 124/71
[2017-06-03] MEDS: ACETAMINOPHEN 500 MG TAB PO PRN ×2 (05:58→21:36)
[2017-06-03] MEDS: oxyCODONE HCL 5 MG CAP PO PRN (05:58)
[2017-06-03 08:57] VITALS: BP 130/82
[2017-06-03] MEDS: LIDOCAINE 5% PATCH TP SCH (08:58)
[2017-06-03] MEDS: CARVEDILOL 6.25 MG TAB PO SCH ×2 (08:58→21:36)
[2017-06-03] MEDS: PANTOPRAZOLE SOD 40 MG TABEC PO SCH (08:58)
[2017-06-03] MEDS: LISINOPRIL 10 MG TAB PO SCH (08:58)
[2017-06-03] MEDS: LEVOTHYROXINE SOD 0.1 MG TAB PO SCH (09:44)
--- NOTE | 2017-06-03 10:29 | Hospitalist Progress Note ---
Subjective Progress Notes Subjective No reported concerns from the patient or staff. No current cp or sob. Physical Exam Vital Signs Date Time Temp Pulse Resp B/P (MAP) Pulse Ox O2 Delivery O2 Flow Rate FiO2 06/03/17 09:05 91 Nasal Cannula 3.0 06/03/17 08:57 98.2 96 20 130/82 (98) Intake and Output 06/04/17 07:00 # Voids 1 General Appearance: Alert, Awake, No Acute Distress Neuro: Other (Doesn't know where she is or why she is here. She thought I was a 4H leader.) Result Diagram: 06/02/17 0550 06/02/17 0550 Assessment and Plan Problems: (1) Fracture of superior pubic ramus Status: Acute Assessment & Plan: PT/OT seeing and recommending further rehab before going home. Likely, she will go to [facility] tomorrow. Oxycodone, Celebrex, APAP and Lidoderm for pain. Dr. Lamar (Ortho) looked at the films of the pelvis and said the patient could weight bear as tolerated. (2) Fall from standing Status: Acute Assessment & Plan: She did hit her head with her fall and required stitches next to her eyebrow. Will monitor. Hold Lovenox for DVT prophylaxis due to head injury. (3) Atrial fibrillation with RVR Status: Acute Assessment & Plan: On telemetry and monitor. Now appears to be in a sinus rhythm. Over replacement for hypothyroid, might be contributing. Echo in February at [facility] showed an EF of 55-6-% with grade II diastolic dysfunction. Continue Coreg. Holding any medication for stroke prophylaxis secondary to the recent head injury and the pubic ramus fracture. (4) Hypokalemia Status: Acute Assessment & Plan: Potassium is now 5.1. Will stop the IVF with KCL. Follow. (5) COPD (chronic obstructive pulmonary disease) Status: Chronic Assessment & Plan: The patient takes Proair and Anoro Ellipta at home per Dr. Bernstein's record. She is supposed to be on O2 24/ but often presents to his clinic without O2. Sats are often in the 70s off of oxygen per Dr. Bernstein's office records. (6) Edema Status: Chronic Assessment & Plan: The patient reports she takes Lasix 20mg prn for edema. Per Dr. Bernstein's records she has potassium chloride 10meq daily as well. (7) Hypertension Status: Chronic Assessment & Plan: Per Dr. Bernstein's record sheis on carvedilol 6.25mg, 1/2 tab bid and lisinopril 10mg daily. (8) Hypothyroid Status: Chronic Assessment & Plan: Per Dr. Bernstein's record she takes levothyroxine 100mcg daily. The dose to be reduced to 50mcg base on the TSH. Repeat needed in 6 weeks. (9) GERD (gastroesophageal reflux disease) Status: Chronic Assessment & Plan: Per Dr. Bernstein's records she is on pantoprazole 40mg daily. (10) Depression Status: Chronic Assessment & Plan: Per Dr. Bernstein's records the patient is on mirtazapine rapidis 15mg at . (11) Noncompliance Status: Chronic Assessment & Plan: Per Dr. Bernstein's notes, the patient does not take her prescription medications regularly. She also does not use her oxygen continuously as prescribed and is often hypoxic when she arrives at his clinic. The patient was unable to tell us what medications she takes and her med reconciliation was taken from Dr. Bernstein's office notes and the external med history. (12) Diastolic CHF, chronic Status: Chronic Assessment & Plan: Echo done at [facility] 03/10/17 showed EF of 55-60%. Also noted were mild MR, mild TR, R ventricular systolic pressure of 45-50mmHg and grade II/ diastolic dysfunction. Continue carvedilol and lisinopril. (13) Alcoholic dementia Status: Chronic Assessment & Plan: She is felt to have chronic alcoholic dementia per records reviewed from [facility]. Exam Sepsis Risk: No Definite Risk Problem Qualifiers (1) Fracture of superior pubic ramus: Encounter type: initial encounter Fracture type: closed Laterality: right Qualified Codes: S32.511A - Fracture of superior rim of right pubis, initial encounter for closed fracture (2) Fall from standing: Encounter type: initial encounter Qualified Codes: W19.XXXA - Unspecified fall, initial encounter STU VASQUEZ MD Jun 03, 2017 10:29
[2017-06-03 10:53] VITALS: BP 128/68
[2017-06-03 10:56] LABS: PLATELET COUNT, AUTOMATED 331 K/uL (150-450)
--- NOTE | 2017-06-03 14:37 | Hospitalist Progress Note ---
Subjective Progress Notes Subjective She is confused. She does recognize me as her former physician, but is disoriented as to place and time. She does not recall any of the circumstances regarding her injury. Physical Exam Vital Signs Date Time Temp Pulse Resp B/P (MAP) Pulse Ox O2 Delivery O2 Flow Rate FiO2 06/03/17 10:53 98.1 93 20 128/68 (88) 91 Nasal Cannula 3.0 Intake and Output 06/04/17 07:00 Intake Total 550 ml Balance 550 ml Intake Oral 550 ml # Voids 1 General Appearance: Alert, Awake Neuro: Other (she does move all four extremities) Cardiovascular: Other (Irregular) Respiratory: Other (Diminished breath sounds bilaterally) Chest: No Tenderness GI: Other (soft/BS present) Extremities: Warm, Perfused Integumentary: Generalized Fragile Skin Result Diagram: 06/03/17 1042 06/03/17 1042 Assessment and Plan Problems: (1) Fracture of superior pubic ramus Status: Acute Assessment & Plan: PT/OT seeing and recommending further rehabilitation before going home. Likely, she will go to [facility] tomorrow. Oxycodone, Celebrex, APAP and Lidoderm for pain. Dr. Lamar (Ortho) looked at the films of the pelvis and said the patient could weight bear as tolerated. (2) Fall from standing Status: Acute Assessment & Plan: She did hit her head with her fall and required stitches next to her eyebrow. Will monitor. She is not on Lovenox for DVT prophylaxis due to head injury. (3) Atrial fibrillation with RVR Status: Acute Assessment & Plan: On telemetry. Over replacement for hypothyroid, might be contributing. Echo in February at [facility] showed an EF of 55% with grade II diastolic dysfunction. Continue Coreg. Holding any medication for stroke prophylaxis secondary to the recent head injury and the pubic ramus fracture. (4) Hypokalemia Status: Acute Assessment & Plan: Now slightly hyperkalemic. Potassium is 5.1 today. We have stopped the IVF with KCL. Follow. (5) COPD (chronic obstructive pulmonary disease) Status: Chronic Assessment & Plan: The patient takes Proair and Anoro Ellipta at home per Dr. Bernstein's record. She is supposed to be on O2 24/, but often presents to his clinic without O2. Sats are often in the 70%s off oxygen per Dr. Bernstein's office records. (6) Edema Status: Chronic Assessment & Plan: The patient reports she takes Lasix 20mg prn for edema. Per Dr. Bernstein's records she has potassium chloride 10meq daily as well. (7) Hypertension Status: Chronic Assessment & Plan: Per Dr. Bernstein's record she is on carvedilol 6.25mg, 1/2 tab bid and lisinopril 10mg daily. (8) Hypothyroid Status: Chronic Assessment & Plan: Per Dr. Bernstein's record she takes levothyroxine 100mcg daily. The dose has been reduced to 50mcg base on the TSH. Repeat needed in 6 weeks. (9) GERD (gastroesophageal reflux disease) Status: Chronic Assessment & Plan: Per Dr. Bernstein's records she is on pantoprazole 40mg daily. (10) Depression Status: Chronic Assessment & Plan: Per Dr. Bernstein's records the patient is on mirtazapine rapidis 15mg at . (11) Noncompliance Status: Chronic Assessment & Plan: Per Dr. Bernstein's notes, the patient does not take her prescription medications regularly. She also does not use her oxygen continuously as prescribed and is often hypoxic when she arrives at his clinic. The patient was unable to tell us what medications she takes and her med reconciliation was done from Dr. Bernstein's office notes and the external med history. (12) Diastolic CHF, chronic Status: Chronic Assessment & Plan: Echo done at [facility] 03/10/17 showed EF of 55-60%. Also noted were mild MR, mild TR, R ventricular systolic pressure of 45-50mmHg and grade II/ diastolic dysfunction. Continue carvedilol and lisinopril. 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 Exam Sepsis Risk: No Definite Risk Problem Qualifiers (1) Fracture of superior pubic ramus: Encounter type: initial encounter Fracture type: closed Laterality: right Qualified Codes: S32.511A - Fracture of superior rim of right pubis, initial encounter for closed fracture (2) Fall from standing: Encounter type: initial encounter Qualified Codes: W19.XXXA - Unspecified fall, initial encounter TYLER SIN MD Jun 03, 2017 14:37
[2017-06-03 15:37] VITALS: BP 132/73
[2017-06-03 21:34] VITALS: BP 134/98
[2017-06-03] MEDS: MELATONIN 3 MG TAB PO SCH (21:36)
[2017-06-03] MEDS: CELECOXIB 100 MG CAP PO PRN (21:36)
[2017-06-03] MEDS: PATCH REMOVAL 1 EA TOP SCH (21:36)
[2017-06-04] MEDS: ACETAMINOPHEN 500 MG TAB PO PRN (05:37)
[2017-06-04 05:39] VITALS: BP 136/72
[2017-06-04] MEDS ORDERED: LEVOTHYROXINE SOD 0.05 MG TAB PO SCH (06:00)
[2017-06-04 06:21] LABS: PLATELET COUNT, AUTOMATED 302 K/uL (150-450)
[2017-06-04 07:50] VITALS: BP 117/78
[2017-06-04] MEDS: LIDOCAINE 5% PATCH TP SCH ×2 (09:00→09:28)
[2017-06-04] MEDS: PANTOPRAZOLE SOD 40 MG TABEC PO SCH (09:28)
[2017-06-04] MEDS: CARVEDILOL 6.25 MG TAB PO SCH (09:28)
[2017-06-04] MEDS: LISINOPRIL 10 MG TAB PO SCH (09:28)
[2017-06-04] MEDS ORDERED: ACET-2043 PO (09:30)
[2017-06-04] MEDS ORDERED: CELE100C79 PO (09:30)
[2017-06-04] MEDS ORDERED: MELA3TAB31 PO (09:30)
[2017-06-04] MEDS ORDERED: LIDO700A19 TP (09:30)
[2017-06-04] MEDS ORDERED: LEVO50TA86 PO (09:30)
[2017-06-04] MEDS ORDERED: OXYC5TAB38 PO (09:30)
--- NOTE | 2017-06-04 09:48 | Hospitalist Depart ---
Discharge Summary Reason for Hosp/Final Diag: (1) Fracture of superior pubic ramus Status: Acute Hospital Course & Plan: Sustained in a fall at home. Dr. Lamar (Ortho) looked at the films of the pelvis and said the patient could weight bear as tolerated. She was seen by therapy for mobilization/safety during her stay. She was placed on analgesics for help with pain control. She was showing very slow progress. PT /OT were recommending further rehabilitation before trying to go home. Arrangements were made for transfer to [facility] for ongoing rehabilitative therapy. (2) Fall from standing Status: Acute Hospital Course & Plan: She did hit her head with her fall and required sutures next to her eyebrow. The sutures can be removed on . (3) Atrial fibrillation with RVR Status: Acute Hospital Course & Plan: Over replacement for hypothyroidism might be contributing. Echocardiogram in February at [facility] showed an EF of 55% with grade II diastolic dysfunction. Continue Coreg. She had not been on any medication for stroke prophylaxis secondary to recurrent falls and alcoholism. (4) Hypokalemia Status: Acute Hospital Course & Plan: Resolved. Potassium level is now in normal range. (5) COPD (chronic obstructive pulmonary disease) Status: Chronic Hospital Course & Plan: The patient takes Proair and Anoro Ellipta at home per Dr. Bernstein's record. She is supposed to be on O2 continuously, but often presents to his clinic without it. Oxygen saturations are often in the 70% range off oxygen per Dr. Bernstein's office records. (6) Edema Status: Chronic Hospital Course & Plan: The patient had been on Lasix 20mg prn for edema. Per Dr. Bernstein's records she has potassium chloride 10meq daily as well. These are currently on hold as the diuretic could contribute to orthostasis/falls. (7) Hypertension Status: Chronic Hospital Course & Plan: Per Dr. Bernstein's record she is on carvedilol 6.25mg, 1/ 2 tab bid and lisinopril 10mg daily. (8) Hypothyroid Status: Chronic Hospital Course & Plan: Per Dr. Bernstein's record she had been on levothyroxine 100mcg daily. Her TSH was essentially zero. The dose has been reduced to 50mcg base on the TSH. Repeat needed in 6 weeks. (9) GERD (gastroesophageal reflux disease) Status: Chronic Hospital Course & Plan: Per Dr. Bernstein's records she is on pantoprazole 40mg daily. (10) Depression Status: Chronic Hospital Course & Plan: Per Dr. Bernstein's records the patient has been on mirtazapine rapidis 15mg at . It is currently being held due to recurrent falls. (11) Noncompliance Status: Chronic Hospital Course & Plan: Per Dr. Bernstein's notes, the patient does not take her prescription medications regularly. She also does not use her oxygen continuously as prescribed and is often hypoxic when she arrives at his clinic. The patient was unable to tell us what medications she takes and her med reconciliation was done from Dr. Bernstein's office notes and the external med history. (12) Diastolic CHF, chronic Status: Chronic Hospital Course & Plan: Echo done at [facility] 03/10/17 showed EF of 55-60%. Also noted were mild MR, mild TR, R ventricular systolic pressure of 45-50mmHg and grade II/ diastolic dysfunction. Continue carvedilol and lisinopril. 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 Departure Weight (Pounds): 104 Weight (Ounces): 8.0 Result Diagram: 06/04/17 0535 06/04/17534 Item Value Date Time Sodium Level 140 mmol/L 05/31/178 Potassium Level 2.3 mmol/L *L 05/31/172347 Chloride Level 86 mmol/L L 05/31/178 Carbon Dioxide Level 45 mmol/L *H 05/31/17 2348 Blood Urea Nitrogen 15 mg/dl 05/31/17 2348 Creatinine 1.00 mg/dl 05/31/17 2348 Glomerular Filtration Rate Calc 53.2 05/31/178 Random Glucose 125 mg/dl H 05/31/178 Calcium Level 8.0 mg/dl L 05/31/178 Total Bilirubin 1.2 mg/dl 05/31/178 Aspartate Amino Transf (AST/SGOT) 61 U/L H 05/31/17 2348 Alanine Aminotransferase (ALT/SGPT) 52 U/L 3/13/18 2348 Alkaline Phosphatase 222 U/L H 05/31/17 2348 Total Protein 6.5 gm/dl 05/31/17 2348 Albumin 2.7 g/dl L 05/31/17 2348 Magnesium Level 1.0 mg/dl *L 06/01/17 0545 Magnesium Level 2.4 mg/dl H 06/01/17 2205 Thyroid Stimulating Hormone (TSH) < 0.02 uIU/ml L 06/02/17 0550 Magnesium Level 2.2 mg/dl 06/02/17 0550 Albumin 2.1 g/dl L 06/04/17 0535 Total Protein 5.2 gm/dl L 06/04/17 0535 Alkaline Phosphatase 192 U/L H 06/04/17 0535 Alanine Aminotransferase (ALT/SGPT) 39 U/L 06/04/17 0535 Aspartate Amino Transf (AST/SGOT) 40 U/L H 06/04/17 0535 Total Bilirubin 0.9 mg/dl 06/04/17 0535 Calcium Level 9.0 mg/dl 06/04/17 0535 Serum Alcohol < 10 mg/dl 05/31/17 2348 White Blood Count 14.4 k/uL H 05/31/17 2348 Hemoglobin 9.5 g/dL L 05/31/17 2348 Hematocrit 28.4 % L 05/31/17 2348 Platelet Count 388 K/uL 05/31/17 2348 White Blood Count 10.7 k/uL 06/02/17 0550 Hemoglobin 8.8 g/dL *L 06/02/17 0550 Hematocrit 26.3 % *L 06/02/17 0550 Platelet Count 339 K/uL 06/02/17 0550 Imaging PATIENT NAME: Sarai Leong : 1935 MR: [id number] V: [id number] EXAM DATE: ORDERING PHYSICIAN: PRADEEP POWELL TECHNOLOGIST: Location: [facility] [place] Patient: Sarai Leong : 1935 Visit/Account:[id number] Date of Sevice: 05/31/2017 HIP RIGHT, FEMUR RIGHT Indication: Follow-up right hip and leg pain. Comparison: Hip radiographs dated March 09, 2017. Findings: There is no acute fracture or dislocation of the right hip or right femur. There is a mildly comminuted fracture of the superior right pubic ramus without significant displacement. Questionable subtle nondisplaced fracture of the inferior pubic ramus. There are possible chronic bilateral inferior pubic rami fractures. Degenerative changes within the lumbar spine. Fusion hardware within the lower lumbar spine. IMPRESSION: 1. Mildly comminuted fracture of the superior right pubic ramus. 2. Questionable subtle nondisplaced fracture of the inferior right pubic ramus. 3. No visualized fractures of the right hip or femur. Report Dictated By: Anotni Crain MD at 05/31/2017 10:10 PM Report E-Signed By: Antoni Crain MD at 05/31/2017 10:17 PM WSN:[id number] PATIENT NAME: Sarai Leong : 1935 MR: [id number] V: [id number] EXAM DATE: ORDERING PHYSICIAN: PRADEEP POWELL TECHNOLOGIST: Location: [facility] [place] Patient: Sarai Leong : 1935 Visit/Account:[id number] Date of Sevice: 05/31/2017 HEAD W/O CONTRAST, C-SPINE W/O CONTRAST CT BRAIN WITHOUT CONTRAST CLINICAL INDICATION: Fall. COMPARISON: CT head dated March 09, 2017. TECHNIQUE: Contiguous axial CT images of the brain and cervical spine were obtained without IV contrast. Sagittal and coronal reformatted images were also performed. One of the following dose optimization techniques was utilized in the performance of this exam: Automated exposure control; adjustment of the mA and/ or kV according to the patient's size; or use of an iterative reconstruction technique. Specific details can be referenced in the facility's radiology CT exam operational policy. FINDINGS: BRAIN: BRAIN:Prominence of the ventricles and sulci is consistent with atrophy. There are areas of low attenuation in the periventricular and subcortical white matter which are nonspecific, but suggestive of chronic microvascular ischemic change. The brainstem and cerebellum appear normal. The basilar cisterns appear normal. There is no mass, acute infarct, hemorrhage or shift of midline. Vascular atherosclerotic calcifications are present. PARANASAL SINUSES & MASTOIDS: Mild/moderate mucosal thickening within the ethmoid air cells, sphenoid sinus, and right maxillary sinus. There is an air- fluid level within the sphenoid sinus. Note is made of a left maxillary antrostomy.. SKULL BASE & CRANIUM: Visualized osseous structures are intact. SOFT TISSUES: No soft tissue swelling or hematoma is appreciated. CERVICAL SPINE: Alignment: Normal. Cranio-cervical junction: Negative. Vertebral bodies: Negative. Posterior elements: Negative. Hardware: None. Disc Spaces: Multilevel mild degenerative disc disease and facet arthropathy. Soft tissues: Negative. Visualized upper chest: Moderate biapical pleural scarring. Mild/moderate emphysematous changes within the visualized upper lobes. IMPRESSION 1. No acute findings of the head or cervical spine.. 2. Findings of advanced chronological age. Report Dictated By: Antoni Crain MD at 05/31/2017 10:21 PM Report E-Signed By: Antoni Crain MD at 05/31/2017 10:25 PM WSN:[id number] PATIENT NAME: Sarai Leong : 1935 MR: [id number] V: [id number] EXAM DATE: ORDERING PHYSICIAN: PRADEEP POWELL TECHNOLOGIST: Location: [facility] [place] Patient: Sarai Leong : 1935 Visit/Account:[id number] Date of Sevice: 05/31/2017 HIP RIGHT, FEMUR RIGHT Indication: Follow-up right hip and leg pain. Comparison: Hip radiographs dated March 09, 2017. Findings: There is no acute fracture or dislocation of the right hip or right femur. There is a mildly comminuted fracture of the superior right pubic ramus without significant displacement. Questionable subtle nondisplaced fracture of the inferior pubic ramus. There are possible chronic bilateral inferior pubic rami fractures. Degenerative changes within the lumbar spine. Fusion hardware within the lower lumbar spine. IMPRESSION: 1. Mildly comminuted fracture of the superior right pubic ramus. 2. Questionable subtle nondisplaced fracture of the inferior right pubic ramus. 3. No visualized fractures of the right hip or femur. Report Dictated By: Antoni Crain MD at 05/31/2017 10:10 PM Report E-Signed By: Antoni Crain MD at 05/31/2017 10:17 PM WSN:[id number] PATIENT NAME: Sarai Leong : 1935 MR: [id number] V: [id number] EXAM DATE: ORDERING PHYSICIAN: PRADEEP POWELL TECHNOLOGIST: Location: [facility] [place] Patient: Sarai Leong : 1935 Visit/Account:[id number] Date of Sevice: 05/31/2017 CHEST SINGLE AP Indication: Fall. Comparison: March 24, 2017. Findings: Heart size within normal limits. Calcification within the aortic knob. There is no focal infiltrate or lobar consolidation. No pneumothorax or pleural effusion. Chronic interstitial changes with biapical pleural scarring, right greater than left. Chronic elevation of the right hemidiaphragm. Note is made of kyphoplasty/vertebroplasty changes within the lumbar spine. No gross acute osseous abnormality. IMPRESSION: 1. No acute cardiopulmonary process. 2. Chronic findings, as above. Report Dictated By: Antoni Crain MD at 05/31/2017 10:25 PM Report E-Signed By: Antoni Crain MD at 05/31/2017 10:26 PM WSN:[id number] PATIENT NAME: Sarai Leong : 1935 MR: [id number] V: [id number] EXAM DATE: ORDERING PHYSICIAN: PRADEEP POWELL TECHNOLOGIST: Location: [facility] [place] Patient: Sarai Leong : 1935 Visit/Account:[id number] Date of Sevice: 05/31/2017 HEAD W/O CONTRAST, C-SPINE W/O CONTRAST CT BRAIN WITHOUT CONTRAST CLINICAL INDICATION: Fall. COMPARISON: CT head dated March 09, 2017. TECHNIQUE: Contiguous axial CT images of the brain and cervical spine were obtained without IV contrast. Sagittal and coronal reformatted images were also performed. One of the following dose optimization techniques was utilized in the performance of this exam: Automated exposure control; adjustment of the mA and/ or kV according to the patient's size; or use of an iterative reconstruction technique. Specific details can be referenced in the facility's radiology CT exam operational policy. FINDINGS: BRAIN: BRAIN:Prominence of the ventricles and sulci is consistent with atrophy. There are areas of low attenuation in the periventricular and subcortical white matter which are nonspecific, but suggestive of chronic microvascular ischemic change. The brainstem and cerebellum appear normal. The basilar cisterns appear normal. There is no mass, acute infarct, hemorrhage or shift of midline. Vascular atherosclerotic calcifications are present. PARANASAL SINUSES & MASTOIDS: Mild/moderate mucosal thickening within the ethmoid air cells, sphenoid sinus, and right maxillary sinus. There is an air- fluid level within the sphenoid sinus. Note is made of a left maxillary antrostomy.. SKULL BASE & CRANIUM: Visualized osseous structures are intact. SOFT TISSUES: No soft tissue swelling or hematoma is appreciated. CERVICAL SPINE: Alignment: Normal. Cranio-cervical junction: Negative. Vertebral bodies: Negative. Posterior elements: Negative. Hardware: None. Disc Spaces: Multilevel mild degenerative disc disease and facet arthropathy. Soft tissues: Negative. Visualized upper chest: Moderate biapical pleural scarring. Mild/moderate emphysematous changes within the visualized upper lobes. IMPRESSION 1. No acute findings of the head or cervical spine.. 2. Findings of advanced chronological age. Report Dictated By: Antoni Crain MD at 05/31/2017 10:21 PM Report E-Signed By: Antoni Crain MD at 05/31/2017 10:25 PM WSN:[id number] EKG PATIENT NAME: SARAI LEONG : [id number] MR: [id number] V: [id number] EXAM DATE: ORDERING PHYSICIAN: YOLY SIN TECHNOLOGIST: Test Reason : IRREGULAR RHYTHM Blood Pressure : / mmHG Vent. Rate : 115 BPM Atrial Rate : 129 BPM P-R Int : 000 ms QRS Dur : 068 ms QT Int : 392 ms P-R-T Axes : 000 069 -61 degrees QTc Int : 542 ms Atrial fibrillation with rapid ventricular response Nonspecific ST and T wave abnormality Abnormal ECG Confirmed by YOLY ASTORGA ([id number]) on 06/01/2017 6:51:10 AM Referred By: Confirmed By:YOLY ASTORGA Condition: Improved Discharge: [facility] Time Spent: > 30 min Discharge Instructions Home Meds Active Scripts Oxycodone Hcl (OXYCODONE HCL) 5 Mg Tablet, 5 MG PO Q6H Y for PAIN for 30 Days, TAB Prov:TYLER SIN MD 06/04/17 Melatonin (MELATONIN) 3 Mg Tablet, 3 MG PO QHS for 30 Days, TAB Prov:TYLER SIN MD 06/04/17 Lidocaine (Lidocaine) 5 % Adh..patch, 1 EACH TP QDAY for 30 Days, PATCH.24H Prov:TYLER SIN MD 06/04/17 Levothyroxine Sodium (LEVOTHYROXINE SODIUM) 50 Mcg Tablet, 0.05 MG PO QDAY@06 for 30 Days, TAB Prov:TYLER SIN MD 06/04/17 Celecoxib (CELEBREX) 100 Mg Capsule, 100 MG PO Q12H Y for pain for 30 Days, CAPSULE Prov:TYLER SIN MD 06/04/17 Acetaminophen (ACETAMINOPHEN) 500 Mg Tablet, 1000 MG PO Q8H Y for PAIN for 30 Days, TAB Prov:TYLER SIN MD 06/04/17 Lisinopril (LISINOPRIL) 10 Mg Tablet, 10 MG PO QDAY, #30 TAB 5 Refills Prov:ELIAS BERNSTEIN MD 04/20/17 Carvedilol (CARVEDILOL) 6.25 Mg Tab, 0.5 TAB PO BID, #30 TAB 3 Refills Prov:ELIAS BERNSTEIN MD 04/20/17 Pantoprazole Sodium (PANTOPRAZOLE SODIUM) 40 Mg Tablet.dr, 40 MG PO QDAY, #30 TAB.SR 6 Refills Prov:ELIAS BERNSTEIN MD 04/20/17 Albuterol Sulfate 90 Mcg/Act (PROAIR HFA 90 MCG/ACT) 8.5 Gm Hfa.aer.ad, 2 PUFF IH Q4-6H Y for SHORTNESS OF BREATH, #1 INHALER 3 Refills Prov:ELIAS BERNSTEIN MD 03/24/17 Umeclidinium Brm/Vilanterol Tr (Anoro Ellipta 62.5-25 Mcg INH) 1 Each Disk.w.dev , 1 PUFF INH QDAY, #1 INHALER 6 Refills Prov:ELIAS BERNSTEIN MD 03/24/17 Discontinued Scripts Potassium Chloride (KLOR-CON 10) 10 Meq Tablet.er, 10 MEQ PO QODAY for with furosemide, #30 TAB 3 Refills Prov:YOLY SIN MD 06/01/17 Furosemide (FUROSEMIDE) 20 Mg Tablet, 1 TAB PO QODAY, #30 TAB 3 Refills Prov:YOLY SIN MD 06/01/17 Levothyroxine Sodium (LEVOTHYROXINE SODIUM) 100 Mcg Tablet, 100 MCG PO QDAY, # 30 TAB 6 Refills Prov:YOLY SIN MD 06/01/17 Oxycodone Hcl (OXYCODONE HCL) 5 Mg Tablet, 5 MG PO QDAY Y for pain, #30 TAB Prov:ELIAS BERNSTEIN MD 04/20/17 Ondansetron (ONDANSETRON ODT) 4 Mg Tab.rapdis, 4 MG PO Q8H Y for nausea vomiting , #30 TAB 2 Refills Prov:ELIAS BERNSTEIN MD 03/24/17 Diet: Regular Activity: As Tolerated (with PT/OT) Special Instructions: She will be followed by Hospitalist Service while on ECF. Copies to: ELIAS BERNSTEIN MD Venous Thromboembolism Antithrombotics Is Pt On Any Antithrombotics?: No Problem Qualifiers (1) Fracture of superior pubic ramus: Encounter type: initial encounter Fracture type: closed Laterality: right Qualified Codes: S32.511A - Fracture of superior rim of right pubis, initial encounter for closed fracture (2) Fall from standing: Encounter type: initial encounter Qualified Codes: W19.XXXA - Unspecified fall, initial encounter TYLER SIN MD Jun 04, 2017 09:48
[2017-06-04 10:51] VITALS: BP 124/74
== END 2017-06-04 11:20 | DRG 536 ==
LOC: ER 20:58 → MED 06-01 00:06
PROVIDERS: ADMIT Internal Medicine; ATTEND Internal Medicine
PROC: 0HQ1XZZ Repair Face Skin, External Approach (ICD-10-PCS; principal; 2017-05-31)
DX: S32.511A Fracture of superior rim of right pubis, initial encounter for closed fracture (principal); I50.32 Chronic diastolic (congestive) heart failure; F10.27 Alcohol dependence with alcohol-induced persisting dementia; I48.0 Paroxysmal atrial fibrillation; E87.6 Hypokalemia; S32.591A Other specified fracture of right pubis, initial encounter for closed fracture; J44.9 Chronic obstructive pulmonary disease, unspecified; I11.0 Hypertensive heart disease with heart failure; E03.9 Hypothyroidism, unspecified; K21.9 Gastro-esophageal reflux disease without esophagitis; F32.9 Major depressive disorder, single episode, unspecified; F17.210 Nicotine dependence, cigarettes, uncomplicated; R40.2412 Glasgow coma scale score 13-15, at arrival to emergency department; S01.111A Laceration without foreign body of right eyelid and periocular area, initial encounter; E83.42 Hypomagnesemia; G47.30 Sleep apnea, unspecified; G62.9 Polyneuropathy, unspecified; K58.9 Irritable bowel syndrome, unspecified; T38.1X5A Adverse effect of thyroid hormones and substitutes, initial encounter; Z23 Encounter for immunization; Y90.0 Blood alcohol level of less than 20 mg/100 ml; W01.0XXA Fall on same level from slipping, tripping and stumbling without subsequent striking against object, initial encounter; Y92.009 Unspecified place in unspecified non-institutional (private) residence as the place of occurrence of the external cause; Y99.8 Other external cause status; Z88.8 Allergy status to other drugs, medicaments and biological substances; Z91.14 Patient's other noncompliance with medication regimen
CPT/HCPCS: 36415; 70450; 71045; 72125; 80320; 82040; 82247; 82310; 82374; 82435; 82565; 82947; 83735; 84075; 84132; 84155; 84295; 84443; 84450; 84460; 84520; 85025; 90471; 90715; 93005; 97162; 97165; 99285; J3475; J3480

== ENCOUNTER → 2017-05-31 | Outpatient (CLI) | payer MEDICARE, OTHER ==
[~2017-05-31] MED LIST changes: +ACET-2043 PO; +CELE100C79 PO; +LEVO50TA86 PO; +LIDO700A19 TP; +MELA3TAB31 PO
[2017-06-01 14:41] VITALS: BMI 17.9
== END ==
LOC: AMB 20:22
PROVIDERS: ATTEND Nurse Practitioner
DX: M79.604 Pain in right leg (principal); W19.XXXA Unspecified fall, initial encounter; Y92.019 Unspecified place in single-family (private) house as the place of occurrence of the external cause
CPT/HCPCS: A0425; A0429

== ENCOUNTER 2017-06-04 11:49 | Inpatient (IN) | payer MEDICARE, OTHER ==
[2017-06-01 14:41] VITALS: Ht 162.6 cm; Wt 49.4 kg
[~2017-06-04] VITALS: Ht 162.6 cm; Wt 49.4 kg
[~2017-06-04 11:49] MED LIST changes: +ACET-2043 PO; +CELE100C79 PO; +LEVO50TA86 PO; +LIDO700A19 TP; +MELA3TAB31 PO
[2017-06-04] MEDS ORDERED: ALBUTEROL SULFATE 90 MCG/ACT 8.5 GM HNH INH PRN (11:58)
[2017-06-04] MEDS ORDERED: oxyCODONE HCL 5 MG CAP PO PRN (11:58)
[2017-06-04] MEDS: ACETAMINOPHEN 500 MG TAB PO PRN (14:37)
[2017-06-04 17:45] VITALS: BP 137/69
[2017-06-04] MEDS: oxyCODONE HCL 5 MG CAP PO PRN (18:20)
[2017-06-04] MEDS ORDERED: PROMETHAZINE HCL 25 MG TAB PO PRN (19:55)
[2017-06-04 20:50] VITALS: BP 133/80
[2017-06-04] MEDS: PATCH REMOVAL 1 EA TOP SCH (21:00)
[2017-06-04] MEDS: CARVEDILOL 6.25 MG TAB PO SCH (21:50)
[2017-06-04] MEDS: MELATONIN 3 MG TAB PO SCH (21:50)
[2017-06-05] MEDS: oxyCODONE HCL 5 MG CAP PO PRN ×2 (00:26→17:37)
[2017-06-05] MEDS: ACETAMINOPHEN 500 MG TAB PO PRN ×2 (05:44→17:37)
[2017-06-05] MEDS: LEVOTHYROXINE SOD 0.05 MG TAB PO SCH (05:44)
[2017-06-05 07:20] VITALS: BP 121/66
[2017-06-05] MEDS: LISINOPRIL 10 MG TAB PO SCH (09:00)
[2017-06-05] MEDS: LIDOCAINE 5% PATCH TP SCH (09:00)
[2017-06-05] MEDS: CARVEDILOL 6.25 MG TAB PO SCH ×2 (09:11→20:38)
[2017-06-05] MEDS: PANTOPRAZOLE SOD 40 MG TABEC PO SCH (09:11)
--- NOTE | 2017-06-05 10:03 | Medical Nutrition Therapy ---
Nutrition Anthropometrics Height (Inches): 64 (stated from med unit) Weight (Pounds): 112 Weight (Calculated Kilograms): 50.859 BMI Calculated: 17.85 Jimmy Nutrition Score: Probably Inadequate Jimmy Nutrition Risk Score: 16 Dietary Referral Nutrition Risk Factors: Unplanned Loss >10lbs Nutrition Risk Comment: needs gluten free diet Nutritional Diagnosis Nutritional Risk Acuity 3: Fair Appetite, Fx & > 80 yrs, %IBW 81-89% Past Medical History: Chronic IBS, GERD, peptic ulcer, alcoholic dementia Nutritional Acuity: 3-Mild Energy Requirement: 1500 (M- StJ X 1.2 SF) Protein Requirement: 60 (1.2gm/kg) Fluid Requirement: 1275 (25ml/kg) Diet Type: Diet as Tolerated ISAIAH/REG Nutrition Intervention: Cont diet as ordered, Encourage intake, Between meal supplement Additional Diet Restrictions: PUT PROTEIN POWDER IN APPROPRIATE FOODS Diet Comment To [facility]: OFFER NUTR SUPPLMENTS Nutrition Monitoring & Eval Nutrition Goals: Eat 75-100% Meal RD Patient Assessment Time: [address] Assessment Type: RD Assessment Patient Nutrition Acuity: 3-Mild Follow Up Date: Jun 13, 2017 Nutritional Comment: 06/04 Pt admitted s/p fx pubic ramus. Pt on regular diet, eating 50- 100% of meals. Wt obtained on med unit 06/01 of 104#. Current wt 06/04 of 112#. Pt has 1+ edema to ankles. Pt was on a diuretic that has been held r/t her fall. Anticipate wt loss when edema resolved. Alb 2.1 Will offer nutr supplment and put protein powder in foods to increase kcal and protien intake. Will cont to monitor and encourage intake. ARPITA BERMAN Jun 05, 2017 10:03
--- NOTE | 2017-06-05 15:47 | Consultant Pharmacy Review ---
Punch Press Operator Review Medication Review Do All Mecications have a Diag: Yes Beers Criteria Medication 2015 Proton Pump Inhibitors: Pantoprazole (Protonix may increase amy of fractures; use for the shortest duration possible) Disease-Drug Interactions Heart Failure: LONG-2 Inhibitors (monitor renal function periodically ) Other General Cautions VInteraction Analysis A = No known interaction C = Monitor therapy X = Avoid combination B = No action needed D = Consider therapy modification Drugs in this analysis: Acetaminophen; Albuterol; CeleBREX; Coreg; Levothyroxine ; Lidocaine (Topical); Melatonin; OxyCONTIN; Prinivil; Promethazine; Protonix * Drug-Drug Interactions * X Albuterol (Beta2-Agonists) Coreg (Beta-Blockers (Nonselective)) D OxyCONTIN (OxyCODONE) Promethazine (MOLD FILLING OPERATOR Depressants) C CeleBREX (Nonsteroidal Anti-Inflammatory Agents) Coreg (Beta-Blockers) Depends on Dosage Form C CeleBREX (Nonsteroidal Anti-Inflammatory Agents) Prinivil (Angiotensin- Converting Enzyme Inhibitors) C Coreg (Beta-Blockers) Lidocaine (Topical) B Acetaminophen OxyCONTIN (Opioid Analgesics) B Levothyroxine (Thyroid Products) Protonix (Proton Pump Inhibitors) B Lidocaine (Topical) OxyCONTIN (Opioid Analgesics) * Print * Help Title Beta2-Agonists / Beta-Blockers (Nonselective) Risk Rating X: Avoid combination Summary Beta-Blockers (Nonselective) may diminish the bronchodilatory effect of Beta2-Agonists. Severity Major Reliability Rating Fair Patient Management Avoid the use of nonselective beta-blockers in patients treated with beta2-agonists. If used concomitantly, monitor closely for diminished bronchodilatory effects of the beta2-agonist. Beta2-Agonists Interacting Members Albuterol; Arformoterol; Bambuterol; Fenoterol; Formoterol; Indacaterol; Levalbuterol; Metaproterenol; Olodaterol; Pirbuterol; Ritodrine; Salmeterol; Terbutaline; Tulobuterol; Vilanterol Beta-Blockers (Nonselective) Interacting Members Arotinolol; Carteolol ( Ophthalmic); Carvedilol; Labetalol; Levobunolol; Metipranolol; Nadolol; Oxprenolol; Penbutolol; Pindolol; Propranolol*; Sotalol; Timolol (Ophthalmic); Timolol (Systemic) * Denotes agent(s) specifically implicated in clinical data. Unmarked agents are listed because they have properties similar to marked agents, and may respond so within the context of the stated interaction. Discussion Nonselective beta-blockers (i.e., those that affect both beta1- and beta2-receptors) will antagonize the pharmacologic effects of beta2-agonists, and vice-versa. Of particular concern is the potential for the bronchodilatory effects of beta2-agonists to be abolished in a patient with asthma or chronic obstructive pulmonary disease (COPD). Nonselective beta-blockers, administered either systemically (e.g., oral, intravenous) or as an ophthalmic product, have been implicated in such interactions.1,2,3,4,5,6,7 Prescribing information for most beta2-agonsts (albuterol, arformoterol, formoterol, levalbuterol, pirbuterol, salmeterol, terbutaline, indacaterol) advises against the use of nonselective beta-blockers in patients with asthma or COPD due to the potential for antagonism of the pulmonary effects of the beta-agonists and bronchospasm.8, 9,10,11,12,13,14,15 Only under certain circumstances (e.g., prophylaxis after myocardial infarction) should beta-blockers be used in these patients, and under these circumstances the use of cardioselective agents is preferred to nonselective agents. Footnotes 1. Amanda Michelle, Katia Ferro, and Sandrine G, Effects of Intravenous Propranolol and Metoprolol and Their Interactions With Isoprenaline on Pulmonary Function, Heart Rate and Blood Pressure in Asthmatics, Eur J Clin Pharmacol, 1975, 8(3-4) :175-80. [PubMed [id number]] Pneumococcal Vaccine HX Pneumo Vac (Fkjscua13): Yes (Since age 65) HX Pneumo Vac (Pneumovax): No (Unsure ) YOLY STACY Jun 05, 2017 15:47
[2017-06-05 16:30] VITALS: BP 109/58
[2017-06-05 20:23] VITALS: BP 106/56
[2017-06-05] MEDS: PATCH REMOVAL 1 EA TOP SCH (20:38)
[2017-06-05] MEDS: MELATONIN 3 MG TAB PO SCH (20:38)
[2017-06-06] MEDS: oxyCODONE HCL 5 MG CAP PO PRN ×3 (05:26→20:38)
[2017-06-06] MEDS: LEVOTHYROXINE SOD 0.05 MG TAB PO SCH (05:26)
[2017-06-06 08:00] VITALS: BP_SYST 145; BP_SYST 147; BP_DIAS 67; BP_DIAS 71
[2017-06-06] MEDS: LIDOCAINE 5% PATCH TP SCH (08:26)
[2017-06-06] MEDS: CARVEDILOL 6.25 MG TAB PO SCH ×2 (08:26→20:38)
[2017-06-06] MEDS: PANTOPRAZOLE SOD 40 MG TABEC PO SCH (08:26)
[2017-06-06] MEDS: LISINOPRIL 10 MG TAB PO SCH (08:27)
[2017-06-06 11:10] VITALS: BP 124/62
[2017-06-06 15:30] VITALS: BP 122/63
--- NOTE | 2017-06-06 15:44 | OT ECF NOTE ---
Type of Note: Initial Note Primary Medical Diagnosis: Superior/ inferior pubic ramus fracture on right side Occupational Therapy Evaluation Date: 06-06-17 SUBJECTIVE: Prior Hospitalization: Pt. was [facility] from 05/31/17 to 06/04. Prior Level of Function: Pt. states she had no outside services for assistance prior to fall. Prior Living Status: Alone Community Services: pt. states none prior to fall Home Accessibility: unknown (possibly multilevel with 3-4 stairs to access) Equipment Owned: FWW and Cane Medical Complications/Past Medical History: please refer to chart for details Psychosocial Support: unknown, pt. states that she does have 2 daughters. Pain Scale (0-10): 5/10 in right pelvis OBJECTIVE: Strength: MMT: Right Left Shoulder Flexion [*] [*] Elbow Flexion [*] [*] Wrist Extension [*] [*] Principal Automation Engineer [*] [*] (5= normal, 4= good, 3= fair, 2= poor, 1= trace) ROM: Both upper extremities WFL Sensation: [*] Functional Transfer: Assistive Device: Front wheeled walker Cane Transfer Ability: CGA ADL: Upper body dressing: Assistive device: Upper body dressing ability: Lower body dressing: Assistive device: Lower body dressing ability: Moderate assistance Toileting: Assistive device: Toileting ability: n/t (pt. has been incontinent of bladder on medical floor) Grooming/hygiene: Assistive device: Grooming ability: n/t Bathing: Assistive device: Bathing ability: n/t Standardized Assessment: Phoenix Index of Activities of Daily Living- Pt. scored a 9/20 on this Index upon evaluation. ASSESSMENT: Pt. is a 81 year old female s/p fall at home suffering a superior/ inferior right side pubic ramus fracture on 05/31/17 at home. Pt. resides in [facility]. Prior level of functioning as well as home situation/set-up has been difficult to gather due to patients level of confusion/ agitation. Pt. was transferred to [facility] for continued rehab and to increase independence in ADL' s in attempt to return to home with assistance from family, care and other possible services. Problem List/Current Limitations: Pain Decreased WB Decreased activity anna Decreased sensation Decreased coordination Generalized weakness Poor safety awareness Memory deficits Short Term Goals: 1. Pt. to perform toileting activities with Mod I. 2. Pt. to perform showering activities with Min A. 3. Pt. to perform dressing activities with Min A. 4. Pt. to perform g/h activities with I. 5. Pt. to increase Phoenix Index score of ADL by 2 points. Nursing Home Goals: return home Patient Goals: return home Rehabilitation Prognosis: Fair Barriers to Discharge: cognition, resides alone PLAN: The patient will benefit from skilled occupational therapy services 5 times per week for 2 weeks including: Ther ex ADL training Safety training Ther act IADL training Transfer training Adaptive equip training Thank you for this referral. If you have any questions, concerns, or comments about this report or plan, please contact me at . Lila Ferrer OTR/L Occupational Therapist ANUJA
--- NOTE | 2017-06-06 16:00 | Medical Nutrition Therapy ---
Nutrition Anthropometrics Height (Inches): 64 (stated from med unit) Weight (Pounds): 112 Weight (Calculated Kilograms): 50.859 BMI Calculated: 17.85 Jimmy Nutrition Score: Probably Inadequate Jimmy Nutrition Risk Score: 16 Dietary Referral Nutrition Risk Factors: Unplanned Loss >10lbs Nutrition Risk Comment: needs gluten free diet Nutritional Diagnosis Nutritional Risk Acuity 3: Fair Appetite, Fx & > 80 yrs, %IBW 81-89% Past Medical History: Chronic IBS, GERD, peptic ulcer, alcoholic dementia Nutritional Acuity: 3-Mild Energy Requirement: 1500 (M- StJ X 1.2 SF) Protein Requirement: 60 (1.2gm/kg) Fluid Requirement: 1275 (25ml/kg) Diet Type: Diet as Tolerated ISAIAH/REG Nutrition Intervention: Cont diet as ordered, Encourage intake, Between meal supplement Additional Diet Restrictions: PUT PROTEIN POWDER IN APPROPRIATE FOODS Diet Comment To [facility]: OFFER NUTR SUPPLMENTS Nutrition Monitoring & Eval RD Patient Assessment Time: [address] Assessment Type: RD Assessment Patient Nutrition Acuity: 3-Mild Follow Up Date: Jun 13, 2017 Nutritional Comment: 06/04 Pt admitted s/p fx pubic ramus. Pt on regular diet, eating 50- 100% of meals. Wt obtained on med unit 06/01 of 104#. Current wt 06/04 of 112#. Pt has 1+ edema to ankles. Pt was on a diuretic that has been held r/t her fall. Anticipate wt loss when edema resolved. Alb 2.1 Will offer nutr supplment and put protein powder in foods to increase kcal and protien intake. Will cont to monitor and encourage intake. 06/06 Pt taking small amounts of meals and snacks. Pt has not been drinking nutr supplment. She has eaten some food from home. Will cont to monitor and encourage intake. 7 ARPITA BERMAN Jun 06, 2017 16:00
[2017-06-06 20:35] VITALS: BP 126/73
[2017-06-06] MEDS: PATCH REMOVAL 1 EA TOP SCH (20:37)
[2017-06-06] MEDS: MELATONIN 3 MG TAB PO SCH (20:38)
[2017-06-06] MEDS: ACETAMINOPHEN 500 MG TAB PO PRN (20:38)
[2017-06-07] MEDS: LEVOTHYROXINE SOD 0.05 MG TAB PO SCH (06:30)
[2017-06-07] MEDS: oxyCODONE HCL 5 MG CAP PO PRN ×2 (06:30→18:57)
[2017-06-07 08:57] VITALS: BP 164/86
[2017-06-07] MEDS: PANTOPRAZOLE SOD 40 MG TABEC PO SCH (08:58)
[2017-06-07] MEDS: CARVEDILOL 6.25 MG TAB PO SCH ×2 (08:58→21:00)
[2017-06-07] MEDS: LISINOPRIL 10 MG TAB PO SCH (08:58)
[2017-06-07] MEDS: LIDOCAINE 5% PATCH TP SCH (10:16)
[2017-06-07] MEDS: MELATONIN 3 MG TAB PO SCH (21:00)
[2017-06-07] MEDS: PATCH REMOVAL 1 EA TOP SCH (21:00)
[2017-06-08] MEDS: LEVOTHYROXINE SOD 0.05 MG TAB PO SCH (05:44)
[2017-06-08 08:18] VITALS: BP 138/80
[2017-06-08] MEDS: PANTOPRAZOLE SOD 40 MG TABEC PO SCH (08:31)
[2017-06-08] MEDS: LISINOPRIL 10 MG TAB PO SCH (08:31)
[2017-06-08] MEDS: CARVEDILOL 6.25 MG TAB PO SCH ×2 (08:32→20:58)
[2017-06-08] MEDS: LIDOCAINE 5% PATCH TP SCH (08:39)
[2017-06-08] MEDS: oxyCODONE HCL 5 MG CAP PO PRN (11:56)
--- NOTE | 2017-06-08 13:58 | ECF H&P BLANK ---
[facility] H&P UPDATE History of Present Illness Chief Complaint Fall, R leg/hip pain. History of Present Illness The patient is an 81 year old female who states that she slipped on newspaper lying on her hardwood floor this evening and fell, injuring her R leg. She crawled to her bedroom and called for help. She denies chest pain, dizziness, palpitations or lightheadedness prior to falling. She was transferred to [facility] ER. Work up revealed fractures of the pelvis. The patient was recommended for admission. The patient was found to be significantly hypokalemic at 2.3. When she arrived on the medical floor she was found to be in new onset a fib with RVR. History Problems: (1) COPD (chronic obstructive pulmonary disease) Status: Chronic (2) Edema Status: Chronic (3) Hyperlipidemia Status: Chronic (4) GERD (gastroesophageal reflux disease) Status: Chronic (5) Sleep apnea Status: Chronic (6) Peripheral neuropathy Status: Chronic (7) Irritable bowel syndrome Status: Chronic (8) Hypoxia Status: Chronic (9) Depression Status: Chronic (10) Hypertension Status: Chronic (11) Hypothyroid Status: Chronic (12) Tobacco abuse (13) CHF (congestive heart failure) Status: Chronic (14) Elevated liver enzymes Status: Chronic (15) History of alcohol abuse Status: Chronic (16) Alcoholic dementia Status: Chronic (17) Diastolic CHF, chronic Status: Chronic Home Meds Active Scripts Levothyroxine Sodium (LEVOTHYROXINE SODIUM) 100 Mcg Tablet, 75 MCG PO QDAY, #30 TAB 6 Refills Prov:ELIAS BERNSTEIN MD 04/21/17 Potassium Chloride (KLOR-CON 10) 10 Meq Tablet.er, 10 MEQ PO QODAY for with furosemide, #30 TAB 3 Refills 1 every day for 3 days then every other day Prov:ELIAS BERNSTEIN MD 04/20/17 Furosemide (FUROSEMIDE) 20 Mg Tablet, 1 TAB PO QODAY Y for edema, #30 TAB 3 Refills Prov:ELIAS BERNSTEIN MD 04/20/17 Lisinopril (LISINOPRIL) 10 Mg Tablet, 10 MG PO QDAY, #30 TAB 5 Refills Prov:ELIAS BERNSTEIN MD 04/20/17 Carvedilol (CARVEDILOL) 6.25 Mg Tab, 0.5 TAB PO BID, #30 TAB 3 Refills Prov:ELIAS BERNSTEIN MD 04/20/17 Oxycodone Hcl (OXYCODONE HCL) 5 Mg Tablet, 5 MG PO QDAY Y for pain, #30 TAB Prov:ELIAS BERNSTEIN MD 04/20/17 Pantoprazole Sodium (PANTOPRAZOLE SODIUM) 40 Mg Tablet.dr, 40 MG PO QDAY, #30 TAB.SR 6 Refills Prov:ELIAS BERNSTEIN MD 04/20/17 Ondansetron (ONDANSETRON ODT) 4 Mg Tab.rapdis, 4 MG PO Q8H Y for nausea vomiting , #30 TAB 2 Refills Prov:ELIAS BERNSTEIN MD 03/24/17 Albuterol Sulfate 90 Mcg/Act (PROAIR HFA 90 MCG/ACT) 8.5 Gm Hfa.aer.ad, 2 PUFF IH Q4-6H Y for SHORTNESS OF BREATH, #1 INHALER 3 Refills Prov:ELIAS BERNSTEIN MD 03/24/17 Umeclidinium Brm/Vilanterol Tr (Anoro Ellipta 62.5-25 Mcg INH) 1 Each Disk.w.dev , 1 PUFF INH QDAY, #1 INHALER 6 Refills Prov:ELIAS BERNSTEIN MD 03/24/17 Allergies: Coded Allergies: codeine (Verified Allergy, Mild, UNKNOWN, 05/31/17) Patient states "That was so long ago" Patient History: Cardiac disorder SISTER (Heart valve problem), , Age:29 Cerebrovascular accident (CVA) BROTHER OR SISTER, , Age:82 FH: VT (myocardial infarction) BROTHER OR SISTER FH: Parkinson's disease FH: cancer BROTHER OR SISTER, , Age:37 FH: suicide BROTHER OR SISTER, , Age:30's - 40 BROTHER OR SISTER, , Age:30's - 40 Neurological disease No family history of disorders CHILD Systemic lupus erythematosus CHILD No Family History of: FH: alcohol abuse FH: coronary artery bypass surgery FH: emphysema FHx: diabetes mellitus Other Social/Family Hx The patient is and lives alone in [place]. Hx Smoking: Yes (1 PACK DAILY) Smoking Status: Current: Every Day Smoker, Heavy Tobacco Smoker Exposure to Second Hand Smoke?: No Caffeine Intake: Coffee Caffeine/Cups Per Day: OCCAISIONALLY Hx Alcohol Use: Yes Hx Substance Use Disorder: No Social Drug Use: Never History of IV Drug Use: No Review of Systems All Systems Reviewed/Normal: Yes, Except as Noted Neurological: No Dizziness Eyes: No Vision Change ENT: No Hearing Loss Cardiovascular: Other (Lower extremitity edema.), No Chest Pain, No Palpitations Respiratory: No Shortness of Breath Gastrointestinal: No Nausea, No Vomiting, No Diarrhea Genitourinary: No Dysuria Musculoskeletal: Pain (Back, chronic. New pain in R leg after fall tonight.) Psychiatric: Depression Exam Vital Signs Vital Signs Date Time Temp Pulse Resp B/P (MAP) Pulse Ox O2 Delivery O2 Flow Rate FiO2 06/01/17 00:31 98.2 92 14 103/68 (80) 100 Nasal Cannula 4.0 General Appearance: Alert, Awake, No Acute Distress, Afebrile Neuro: No Gross deficits Eyes: PERRLA ENT: Other (Lips are dry. ) Neck: No Masses Cardiovascular: No JVD, Other (Irregularly irregular, tachycardic.) Respiratory: No Respiratory Distress, Clear to Auscultation GI: Abd Soft and Non-Tender Extremities: Warm, Perfused, Edema (Feet and ankles with pitting edema. ) Integumentary: Generalized Fragile Skin Psych: Alert & Oriented X3, Appropriate Mood & Affect Medical Decision Making Data Points Result Diagram: 05/31/178 05/31/172347 Item Value Date Time Calcium Level 8.0 mg/dl L 05/31/172347 Total Bilirubin 1.2 mg/dl 05/31/17 2348 Aspartate Amino Transf (AST/SGOT) 61 U/L H 05/31/17 2348 Alanine Aminotransferase (ALT/SGPT) 52 U/L 05/31/17 2348 Alkaline Phosphatase 222 U/L H 05/31/17 2348 Total Protein 6.5 gm/dl 05/31/178 Albumin 2.7 g/dl L 05/31/172347 Serum Alcohol < 10 mg/dl 05/31/172347 EKG / [place] [facility] [place] NAME: Yanelis Leong : 1935 MR: [id number] V: [id number] EXAM DATE: ORDERING PHYSICIAN: PRADEEP POWELL TECHNOLOGIST: Location: [facility] Patient: Yanelis Leong : 1935 Visit/Account:[id number] Date of Sevice: 05/31/2017 HEAD W/O CONTRAST, C-SPINE W/O CONTRAST CT BRAIN WITHOUT CONTRAST CLINICAL INDICATION: Fall. COMPARISON: CT head dated March 09, 2017. TECHNIQUE: Contiguous axial CT images of the brain and cervical spine were obtained without IV contrast. Sagittal and coronal reformatted images were also performed. One of the following dose optimization techniques was utilized in the performance of this exam: Automated exposure control; adjustment of the mA and/ or kV according to the patient's size; or use of an iterative reconstruction technique. Specific details can be referenced in the facility's radiology CT exam operational policy. FINDINGS: BRAIN: BRAIN:Prominence of the ventricles and sulci is consistent with atrophy. There are areas of low attenuation in the periventricular and subcortical white matter which are nonspecific, but suggestive of chronic microvascular ischemic change. The brainstem and cerebellum appear normal. The basilar cisterns appear normal. There is no mass, acute infarct, hemorrhage or shift of midline. Vascular atherosclerotic calcifications are present. PARANASAL SINUSES & MASTOIDS: Mild/moderate mucosal thickening within the ethmoid air cells, sphenoid sinus, and right maxillary sinus. There is an air- fluid level within the sphenoid sinus. Note is made of a left maxillary antrostomy.. SKULL BASE & CRANIUM: Visualized osseous structures are intact. SOFT TISSUES: No soft tissue swelling or hematoma is appreciated. CERVICAL SPINE: Alignment: Normal. Cranio-cervical junction: Negative. Vertebral bodies: Negative. Posterior elements: Negative. Hardware: None. Disc Spaces: Multilevel mild degenerative disc disease and facet arthropathy. Soft tissues: Negative. Visualized upper chest: Moderate biapical pleural scarring. Mild/moderate emphysematous changes within the visualized upper lobes. IMPRESSION 1. No acute findings of the head or cervical spine.. 2. Findings of advanced chronological age. Report Dictated By: Antoni Crain MD at 05/31/2017 10:21 PM Report E-Signed By: Antoni Crain MD at 05/31/2017 10:25 PM WSN:[id number] [place] [facility] [place] NAME: Yanelis Leong : 1935 MR: [id number] V: [id number] EXAM DATE: ORDERING PHYSICIAN: PRADEEP POWELL TECHNOLOGIST: Location: [facility] Patient: Yanelis Leong : 1935 Visit/Account:[id number] Date of Sevice: 05/31/2017 CHEST SINGLE AP Indication: Fall. Comparison: March 24, 2017. Findings: Heart size within normal limits. Calcification within the aortic knob. There is no focal infiltrate or lobar consolidation. No pneumothorax or pleural effusion. Chronic interstitial changes with biapical pleural scarring, right greater than left. Chronic elevation of the right hemidiaphragm. Note is made of kyphoplasty/vertebroplasty changes within the lumbar spine. No gross acute osseous abnormality. IMPRESSION: 1. No acute cardiopulmonary process. 2. Chronic findings, as above. Report Dictated By: Antoni Crain MD at 05/31/2017 10:25 PM Report E-Signed By: Antoni Crain MD at 05/31/2017 10:26 PM WSN:[id number] [place] [facility] NAME: Yanelis Leong : 1935 MR: [id number] V: [id number] EXAM DATE: ORDERING PHYSICIAN: PRADEEP POWELL TECHNOLOGIST: Location: [facility] Patient: Yanelis Leong : 1935 Visit/Account:[id number] Date of Sevice: 05/31/2017 HIP RIGHT, FEMUR RIGHT Indication: Follow-up right hip and leg pain. Comparison: Hip radiographs dated March 09, 2017. Findings: There is no acute fracture or dislocation of the right hip or right femur. There is a mildly comminuted fracture of the superior right pubic ramus without significant displacement. Questionable subtle nondisplaced fracture of the inferior pubic ramus. There are possible chronic bilateral inferior pubic rami fractures. Degenerative changes within the lumbar spine. Fusion hardware within the lower lumbar spine. IMPRESSION: 1. Mildly comminuted fracture of the superior right pubic ramus. 2. Questionable subtle nondisplaced fracture of the inferior right pubic ramus. 3. No visualized fractures of the right hip or femur. Report Dictated By: Antoni Crain MD at 05/31/2017 10:10 PM Report E-Signed By: Antoni Crain MD at 05/31/2017 10:17 PM WSN:[id number] Pre-Admit Course Medical Record Review: Yes Assessment and Plan Problems: (1) Fracture of superior pubic ramus Status: Acute Assessment & Plan: Will have PT/OT see in am. Will place on Lortab for pain. Orthopedic surgery consult in am (need to call). (2) Fall from standing Status: Acute Assessment & Plan: She did hit her head with her fall and required stitches next to her eyebrow. Will monitor. Hold Lovenox for DVT prophylaxis due to head injury. (3) Atrial fibrillation with RVR Status: Acute Assessment & Plan: Will place on telemetry and monitor. Replace potassium. Magnesium pending. (4) Hypokalemia Status: Acute Assessment & Plan: Potassium is 2.3. Will give K-rider 40meq over [address] 20 meq of KCl in her IV fluid. Recheck BMP in 4 hours. (5) COPD (chronic obstructive pulmonary disease) Status: Chronic Assessment & Plan: The patient takes Proair and Anoro Ellipta at home per Dr. Bernstein's record. She is supposed to be on O2 11/10 but often presents to his clinic without O2. Sats are often in the 70s off of oxygen per Dr. Bernstein's office records. (6) Edema Status: Chronic Assessment & Plan: The patient reports she takes Lasix 20mg prn for edema. Per Dr. Bernstein's records she has potassium chloride 10meq daily as well. (7) Hypertension Status: Chronic Assessment & Plan: Per Dr. Bernstein's record sheis on carvedilol 6.25mg, 1/2 tab bid and lisinopril 10mg daily. (8) Hypothyroid Status: Chronic Assessment & Plan: Per Dr. Bernstein's record she takes levothyroxine 100mcg daily. (9) GERD (gastroesophageal reflux disease) Status: Chronic Assessment & Plan: Per Dr. Bernstein's records she is on pantoprazole 40mg daily. (10) Depression Status: Chronic Assessment & Plan: Per Dr. Bernstein's records the patient is on mirtazapine rapidis 15mg at . (11) Noncompliance Status: Chronic Assessment & Plan: Per Dr. Bernstein's notes, the patient does not take her prescription medications regularly. She also does not use her oxygen continuously as prescribed and is often hypoxic when she arrives at his clinic. The patient was unable to tell us what medications she takes and her med reconciliation was taken from Dr. Bernstein's office notes and the external med history. (12) Diastolic CHF, chronic Status: Chronic Assessment & Plan: Echo done at [facility] 03/10/17 showed EF of 55-60%. Also noted were mild MR, mild TR, R ventricular systolic pressure of 45-50mmHg and grade II/ diastolic dysfunction. Continue carvedilol and lisinopril. (13) Alcoholic dementia Status: Chronic Assessment & Plan: She is felt to have chronic alcoholic dementia per records reviewed from [facility]. Time Spent on Plan of Care: < 30 min Copies to: ELIAS BERNSTEIN MD Venous Thromboembolism Antithrombotics Is Pt On Any Antithrombotics?: No Prophylaxis Tx Contraindicated Pharmacological Contraindicati: Medical Contraindication (Recent head trauma.) Exam Sepsis Risk: No Definite Risk Problem Qualifiers (1) Fracture of superior pubic ramus: Encounter type: initial encounter Fracture type: closed Laterality: right Qualified Codes: S32.511A - Fracture of superior rim of right pubis, initial encounter for closed fracture (2) Fall from standing: Encounter type: initial encounter Qualified Codes: W19.XXXA - Unspecified fall, initial encounter YOLY SIN MD Jun 01, 2017 01:40 <Electronically signed by YOLY SIN MD> D/ [id number] ZOE/TOBY CC: ELIAS BERNSTEIN MD Patient will be admitted to [facility] for ongoing rehabilitative therapy and pain control. TYLER SIN MD Jun 08, 2017 13:58
--- NOTE | 2017-06-08 14:08 | Hospitalist Progress Note ---
Subjective Progress Notes Subjective She reports some cough/rare sputum. She has had urinary frequency, but no dysuria. Physical Exam Vital Signs Date Time Temp Pulse Resp B/P (MAP) Pulse Ox O2 Delivery O2 Flow Rate FiO2 06/08/17 08:34 91 Nasal Cannula 2.0 06/08/17 08:18 97.0 86 20 138/80 (99) Intake and Output 06/09/17 07:00 Intake Total 100 ml Balance 100 ml Intake Oral 100 ml # Voids 2 General Appearance: Alert, Awake Cardiovascular: Other (Irregular) Respiratory: Other (scattered rhonchi with few expiratory wheezes) GI: Soft and Non-Tender Extremities: Warm, Perfused, Edema Assessment and Plan Problems: (1) Fracture of superior pubic ramus Status: Acute Assessment & Plan: Sustained in a fall at home. Dr. Lamar (Ortho) looked at the films of the pelvis and said the patient could weight bear as tolerated. She was seen by therapy for mobilization/safety during her stay. She was placed on analgesics for help with pain control. She has been showing very slow progress. PT/OT recommended further rehabilitation before trying to go home. She has been transferred to [facility] for ongoing rehabilitative therapy. (2) Alcoholic dementia Status: Chronic Assessment & Plan: She is felt to have chronic alcoholic dementia per records reviewed from [facility]. (3) Hypothyroid Status: Chronic Assessment & Plan: Per Dr. Bernstein's record she had been on levothyroxine 100mcg daily. Her TSH was essentially zero. The dose has been reduced to 50mcg based on the TSH. Repeat needed in 4-6 weeks. (4) GERD (gastroesophageal reflux disease) Status: Chronic Assessment & Plan: Per Dr. Bernstein's records she is on pantoprazole 40mg daily. (5) COPD (chronic obstructive pulmonary disease) Status: Chronic Assessment & Plan: The patient takes Proair and Anoro Ellipta at home per Dr. Bernstein's record. She is supposed to be on O2 continuously, but often presents to his clinic without it. Oxygen saturations are often in the 70% range off oxygen per Dr. Bernstein's office records. We will have her on albuterol and Advair while she is here. (6) Depression Status: Chronic Assessment & Plan: Per Dr. Bernstein's records the patient has been on mirtazapine rapidis 15mg at . It is currently being held due to recurrent falls. (7) Diastolic CHF, chronic Status: Chronic Assessment & Plan: Echo done at [facility] 03/10/17 showed EF of 55-60%. Also noted were mild MR, mild TR, R ventricular systolic pressure of 45-50mmHg and grade II/ diastolic dysfunction. Continue carvedilol and lisinopril. (8) CHRONIC ATRIAL FIBRILLATION Status: Chronic Assessment & Plan: Over replacement for hypothyroidism might be contributing. Echocardiogram in February at [facility] showed an EF of 55% with grade II diastolic dysfunction. Continue Coreg. She had not been on any medication for stroke prophylaxis secondary to recurrent falls and alcoholism. (9) Urinary frequency Status: Acute Assessment & Plan: Will check UA and culture. Treat as needed. TYLER SIN MD Jun 08, 2017 14:07
[2017-06-08 16:20] VITALS: BP 119/67
[2017-06-08] MEDS: PATCH REMOVAL 1 EA TOP SCH (20:58)
[2017-06-08] MEDS: guaiFENesin 600 MG TABCR PO SCH (20:58)
[2017-06-08] MEDS: MELATONIN 3 MG TAB PO SCH (20:58)
--- NOTE | 2017-06-08 21:51 | PT ECF NOTE ---
Type of Note: Initial Note Primary Medical Diagnosis: Superior/ inferior pubic ramus fracture on right side Physical Therapy Evaluation Date: 06-06-17 SUBJECTIVE: Prior Hospitalization: Pt. was admitted to from 05/31/17 to 06/04. Prior Level of Function: Pt. states she had no outside services for assistance prior to fall. Prior Living Status: Alone Community Services: pt. states none prior to fall Home Accessibility: unknown (possibly multilevel with 3-4 stairs to access) Equipment Owned: FWW and Cane Medical Complications/Past Medical History: please refer to chart for details Psychosocial Support: unknown, pt. states that she does have 2 daughters who reside out of town. Previous records indicate one in [place] and one in [place], with potentially a brother locally. During prior admissions pt has been offered [facility] services and has declined them, stating that her daughters would arrive and provide care for her. Pain Scale (0-10): 5/10 in right pelvis OBJECTIVE: Pt would not tolerate formal MMT testing; functional mobility indicates 3-/5 at R) LE with assistance required to lift leg into bed and position it comfortably due to pain. ROM: (please note any abnormalities) Likely limited at R) Hip due to pain. Sensation: (please note any abnormalities) no paresthesias reported Other Neuro findings: n/a Bed Mobility: Min assist for R) LE Assistive device: Bed rail and bed alarm for safety Transfers: Minimum assistance; Verbal cues; SBA; CGA Assistive Device: Front wheeled walker Gait: Verbal cues; SBA; CGA x 100' with step-through gait pattern Assistive device: Front wheeled walker Stairs: Not yet attempted Assistive device: Timed Up and Go (>12 seconds indicated increased risk for falls): Pt not willing to participate in this test currently 10 meter walk test (0.6m/second cannot function independently): n/a Other Objective Measures: n/a ASSESSMENT: Pt demos limited functional mobility with ambulation distance and ability to complete supine to/from sit transfers safely and effectively. Pt is fairly emotionally labile and becomes agitated if questioned or corrected regarding orientation or previous occurrences. Pt tolerates treatment sessions better if provided with fewer instructions and cues but would benefit from further practice with safety awareness skills during transfers and basic ADL mobility. Problem List/Current Limitations: Pain, Decreased strength, Decreased balance, Poor safety awareness and impulsive behavior Short Term Goals: 1. Pt to anna ambulation with adequate pain control x 150' with least restrictive device and modified indep 2. Pt to be modified indep with bed mobility and sit to/from supine transfers 3. Pt to be modified indep with sit to/from stand transfers from a variety of surfaces 4. Pt to anna up/down platform step with proper safety awareness and least restrictive device, with SBA/CGA. Half-Way Goals: Pt to return home with appropriate level of assistance for safety Patient Goals: Return home with assist from family Rehabilitation Prognosis: Fair Barriers for Discharge: Pt is fairly impulsive and demos poor safety awareness skills overall. Pt is also generally opposed to additional care in her home. PLAN: The patient will benefit from skilled physical therapy services 5 times per week for 2 weeks including: Therapeutic Activities Transfer Training, Gait Training, Stair Training, ADL's, Safety Training, Pt/ Caregiver Training, Bed Mobility Thank you for this referral. If you have any questions, concerns, or comments about this report or plan, please contact me at . H. Gwen Velazquez, PT, MPT MTDD
[2017-06-09] MEDS ORDERED: oxyCODONE HCL 5 MG CAP ONE (00:30)
[2017-06-09] MEDS: LEVOTHYROXINE SOD 0.05 MG TAB PO SCH (05:46)
[2017-06-09 07:34] LABS: PLATELET COUNT, AUTOMATED 560 K/uL (150-450)
[2017-06-09 07:45] VITALS: BP 145/82
[2017-06-09] MEDS: LIDOCAINE 5% PATCH TP SCH (08:36)
[2017-06-09] MEDS: CARVEDILOL 6.25 MG TAB PO SCH ×2 (08:37→20:42)
[2017-06-09] MEDS: guaiFENesin 600 MG TABCR PO SCH ×2 (08:37→20:42)
[2017-06-09] MEDS: LISINOPRIL 10 MG TAB PO SCH (08:37)
[2017-06-09] MEDS: FOLIC ACID/CYANOCOB/PYRIDOXINE PO SCH (08:37)
[2017-06-09] MEDS: PANTOPRAZOLE SOD 40 MG TABEC PO SCH (08:37)
[2017-06-09] MEDS: POLYSACCHARIDE IRON COM 150 MG PO SCH ×2 (08:37→17:19)
[2017-06-09] MEDS: NICOTINE 7 MG/24 HR PATCH TD SCH (08:41)
[2017-06-09] MEDS: ACETAMINOPHEN 500 MG TAB PO PRN (11:42)
[2017-06-09 16:15] VITALS: BP 145/60
[2017-06-09] MEDS: MELATONIN 3 MG TAB PO SCH (20:42)
[2017-06-09] MEDS: PATCH REMOVAL 1 EA TOP SCH (21:00)
[2017-06-10] MEDS: LEVOTHYROXINE SOD 0.05 MG TAB PO SCH (05:12)
[2017-06-10 08:06] VITALS: BP 137/69
[2017-06-10] MEDS: POLYSACCHARIDE IRON COM 150 MG PO SCH ×2 (08:39→17:00)
[2017-06-10] MEDS: PANTOPRAZOLE SOD 40 MG TABEC PO SCH (08:40)
[2017-06-10] MEDS: guaiFENesin 600 MG TABCR PO SCH ×2 (08:40→20:59)
[2017-06-10] MEDS: FOLIC ACID/CYANOCOB/PYRIDOXINE PO SCH (08:40)
[2017-06-10] MEDS: LIDOCAINE 5% PATCH TP SCH (08:40)
[2017-06-10] MEDS: LISINOPRIL 10 MG TAB PO SCH (08:40)
[2017-06-10] MEDS: CARVEDILOL 6.25 MG TAB PO SCH ×2 (08:41→20:59)
[2017-06-10] MEDS: NICOTINE 7 MG/24 HR PATCH TD SCH (08:42)
[2017-06-10] MEDS: PATCH REMOVAL 1 EA TP SCH (09:00)
[2017-06-10] MEDS: ACETAMINOPHEN 500 MG TAB PO PRN ×2 (13:05→20:59)
[2017-06-10 15:54] VITALS: BP 128/62
[2017-06-10] MEDS: MELATONIN 3 MG TAB PO SCH (20:59)
[2017-06-10] MEDS: PATCH REMOVAL 1 EA TOP SCH (20:59)
[2017-06-11] MEDS: LEVOTHYROXINE SOD 0.05 MG TAB PO SCH (06:02)
[2017-06-11 07:49] VITALS: BP 147/65
[2017-06-11] MEDS: LIDOCAINE 5% PATCH TP SCH (09:04)
[2017-06-11] MEDS: FOLIC ACID/CYANOCOB/PYRIDOXINE PO SCH (09:05)
[2017-06-11] MEDS: CARVEDILOL 6.25 MG TAB PO SCH ×2 (09:05→20:37)
[2017-06-11] MEDS: POLYSACCHARIDE IRON COM 150 MG PO SCH ×2 (09:05→17:16)
[2017-06-11] MEDS: PANTOPRAZOLE SOD 40 MG TABEC PO SCH (09:05)
[2017-06-11] MEDS: NICOTINE 7 MG/24 HR PATCH TD SCH (09:05)
[2017-06-11] MEDS: LISINOPRIL 10 MG TAB PO SCH (09:06)
[2017-06-11] MEDS: guaiFENesin 600 MG TABCR PO SCH ×2 (09:06→20:37)
[2017-06-11] MEDS: PATCH REMOVAL 1 EA TP SCH (09:08)
[2017-06-11] MEDS: LEVOFLOXACIN 500 MG TAB PO SCH (10:36)
[2017-06-11] MEDS: ACETAMINOPHEN 500 MG TAB PO PRN ×2 (11:48→20:38)
[2017-06-11 16:10] VITALS: BP 130/68
[2017-06-11 20:30] VITALS: BP 139/70
[2017-06-11] MEDS: PATCH REMOVAL 1 EA TOP SCH (20:36)
[2017-06-11] MEDS: MELATONIN 3 MG TAB PO SCH (20:37)
[2017-06-12] MEDS: LEVOTHYROXINE SOD 0.05 MG TAB PO SCH (06:21)
[2017-06-12 07:44] VITALS: BP 154/73
[2017-06-12] MEDS: FOLIC ACID/CYANOCOB/PYRIDOXINE PO SCH (08:43)
[2017-06-12] MEDS: CELECOXIB 100 MG CAP PO PRN (08:43)
[2017-06-12] MEDS: POLYSACCHARIDE IRON COM 150 MG PO SCH ×2 (08:43→17:46)
[2017-06-12] MEDS: PANTOPRAZOLE SOD 40 MG TABEC PO SCH (08:43)
[2017-06-12] MEDS: LISINOPRIL 10 MG TAB PO SCH (08:43)
[2017-06-12] MEDS: guaiFENesin 600 MG TABCR PO SCH ×2 (08:44→20:22)
[2017-06-12] MEDS: CARVEDILOL 6.25 MG TAB PO SCH ×2 (08:44→20:22)
[2017-06-12] MEDS: NICOTINE 7 MG/24 HR PATCH TD SCH (08:46)
[2017-06-12] MEDS: LIDOCAINE 5% PATCH TP SCH (08:47)
[2017-06-12] MEDS: PATCH REMOVAL 1 EA TP SCH (08:49)
[2017-06-12] MEDS: LEVOFLOXACIN 500 MG TAB PO SCH (11:04)
[2017-06-12 15:50] VITALS: BP 146/86
[2017-06-12 20:23] VITALS: BP 157/81
[2017-06-12] MEDS: ACETAMINOPHEN 500 MG TAB PO PRN (20:23)
[2017-06-12] MEDS: PATCH REMOVAL 1 EA TOP SCH (20:23)
[2017-06-12] MEDS: MELATONIN 3 MG TAB PO SCH (20:23)
[2017-06-13] MEDS: LEVOTHYROXINE SOD 0.05 MG TAB PO SCH (05:44)
[2017-06-13] MEDS: CARVEDILOL 6.25 MG TAB PO SCH ×2 (08:41→21:28)
[2017-06-13] MEDS: guaiFENesin 600 MG TABCR PO SCH ×2 (08:41→21:28)
[2017-06-13] MEDS: FOLIC ACID/CYANOCOB/PYRIDOXINE PO SCH (08:41)
[2017-06-13] MEDS: PANTOPRAZOLE SOD 40 MG TABEC PO SCH (08:41)
[2017-06-13] MEDS: LISINOPRIL 10 MG TAB PO SCH (08:41)
[2017-06-13] MEDS: POLYSACCHARIDE IRON COM 150 MG PO SCH ×2 (08:42→17:28)
[2017-06-13 08:43] VITALS: BP 156/81
[2017-06-13] MEDS: NICOTINE 7 MG/24 HR PATCH TD SCH (08:50)
[2017-06-13] MEDS: PATCH REMOVAL 1 EA TP SCH (08:51)
[2017-06-13] MEDS: LIDOCAINE 5% PATCH TP SCH (08:51)
[2017-06-13] MEDS: LEVOFLOXACIN 500 MG TAB PO SCH (09:48)
--- NOTE | 2017-06-13 11:15 | Medical Nutrition Therapy ---
Nutrition Anthropometrics Height (Inches): 64 (stated from med unit) Weight (Pounds): 108 Weight (Calculated Kilograms): 49.413 BMI Calculated: 17.85 Jimmy Nutrition Score: Probably Inadequate Jimmy Nutrition Risk Score: 16 Dietary Referral Nutrition Risk Factors: Unplanned Loss >10lbs Nutrition Risk Comment: needs gluten free diet Nutritional Diagnosis Nutritional Risk Acuity 3: Fair Appetite, Fx & > 80 yrs, %IBW 81-89% Past Medical History: Chronic IBS, GERD, peptic ulcer, alcoholic dementia Nutritional Acuity: 3-Mild Energy Requirement: 1500 (M- StJ X 1.2 SF) Protein Requirement: 60 (1.2gm/kg) Fluid Requirement: 1275 (25ml/kg) Diet Type: Diet as Tolerated ISAIAH/REG Nutrition Intervention: Cont diet as ordered, Encourage intake, Between meal supplement Food Likes: standing order per daughter-van boost every lunch and dinner Additional Diet Restrictions: PUT PROTEIN POWDER IN APPROPRIATE FOODS Diet Comment To [facility]: OFFER NUTR SUPPLMENTS Nutrition Monitoring & Eval Nutrition Goals: Eat 75-100% Meal Nutrition Follow-Up: Fair Intake RD Patient Assessment Time: [address] Assessment Type: RD Re-Assessment Patient Nutrition Acuity: 3-Mild Follow Up Date: Jun 21, 2017 Nutritional Comment: 06/04 Pt admitted s/p fx pubic ramus. Pt on regular diet, eating 50- 100% of meals. Wt obtained on med unit 06/01 of 104#. Current wt 06/04 of 112#. Pt has 1+ edema to ankles. Pt was on a diuretic that has been held r/t her fall. Anticipate wt loss when edema resolved. Alb 2.1 Will offer nutr supplment and put protein powder in foods to increase kcal and protien intake. Will cont to monitor and encourage intake. 06/06 Pt taking small amounts of meals and snacks. Pt has not been drinking nutr supplment. She has eaten some food from home. Will cont to monitor and encourage intake. 06/13 Intake averge 88% of small to regular portions. Pt has not been drinking nutr supplments. will cont to put protein powder in appropriate foods and offer nutr supplments. Cont to monitor and encourage intake. 7 ARPITA BERMAN Jun 13, 2017 11:15
--- NOTE | 2017-06-13 14:52 | Antimicrobial Stewardship ---
Antimicrobial Stewardship MD Service: Hospitalist Indications: UTI Antimicrobial Allergies No known antimicrobial allergies Antimicrobial Used Levofloxacin 250 mg PO daily Start Date: Jun 11, 2017 Weight (Calculated Kilograms): 49.413 Culture Results: Yes (06/10/17 [facility] Klebsiella Oxytoca) Tolerating Oral Fluids: Yes Taking Other Meds PO: Yes Eligable for PO Conversion: Yes (PO Antimicrobial started 06/11/17) PREETHI RAJAN Jun 13, 2017 14:52
[2017-06-13 16:34] VITALS: BP 156/66
[2017-06-13 20:28] VITALS: BP 144/73
[2017-06-13] MEDS: PATCH REMOVAL 1 EA TOP SCH (21:00)
[2017-06-13] MEDS: ACETAMINOPHEN 500 MG TAB PO PRN (21:28)
[2017-06-13] MEDS: MELATONIN 3 MG TAB PO SCH (21:28)
[2017-06-14] MEDS: LEVOTHYROXINE SOD 0.05 MG TAB PO SCH (05:16)
[2017-06-14 08:00] VITALS: BP 127/63
[2017-06-14] MEDS: CARVEDILOL 6.25 MG TAB PO SCH ×2 (08:41→21:00)
[2017-06-14] MEDS: POLYSACCHARIDE IRON COM 150 MG PO SCH ×2 (08:41→16:34)
[2017-06-14] MEDS: PATCH REMOVAL 1 EA TP SCH (08:41)
[2017-06-14] MEDS: LIDOCAINE 5% PATCH TP SCH (08:41)
[2017-06-14] MEDS: guaiFENesin 600 MG TABCR PO SCH ×2 (08:41→21:01)
[2017-06-14] MEDS: FOLIC ACID/CYANOCOB/PYRIDOXINE PO SCH (08:41)
[2017-06-14] MEDS: NICOTINE 7 MG/24 HR PATCH TD SCH (08:42)
[2017-06-14] MEDS: PANTOPRAZOLE SOD 40 MG TABEC PO SCH (08:42)
[2017-06-14] MEDS: LISINOPRIL 10 MG TAB PO SCH (09:00)
[2017-06-14] MEDS: LEVOFLOXACIN 500 MG TAB PO SCH (10:39)
[2017-06-14 16:20] VITALS: BP 133/76
[2017-06-14] MEDS: MELATONIN 3 MG TAB PO SCH (21:00)
[2017-06-14] MEDS: PATCH REMOVAL 1 EA TOP SCH (21:00)
[2017-06-15] MEDS: LEVOTHYROXINE SOD 0.05 MG TAB PO SCH (05:54)
[2017-06-15 08:00] VITALS: BP 135/77
[2017-06-15] MEDS: LISINOPRIL 10 MG TAB PO SCH (08:52)
[2017-06-15] MEDS: guaiFENesin 600 MG TABCR PO SCH ×2 (08:52→21:01)
[2017-06-15] MEDS: PANTOPRAZOLE SOD 40 MG TABEC PO SCH (08:52)
[2017-06-15] MEDS: CARVEDILOL 6.25 MG TAB PO SCH ×2 (08:52→21:01)
[2017-06-15] MEDS: FOLIC ACID/CYANOCOB/PYRIDOXINE PO SCH (08:52)
[2017-06-15] MEDS: POLYSACCHARIDE IRON COM 150 MG PO SCH ×2 (08:52→17:07)
[2017-06-15] MEDS: NICOTINE 7 MG/24 HR PATCH TD SCH (08:53)
[2017-06-15] MEDS: LIDOCAINE 5% PATCH TP SCH (08:53)
[2017-06-15] MEDS: PATCH REMOVAL 1 EA TP SCH (09:00)
--- NOTE | 2017-06-15 09:45 | Hospitalist Progress Note ---
Subjective Progress Notes Subjective No new complaints. Pain is still present but manageable. Physical Exam Vital Signs Date Time Temp Pulse Resp B/P (MAP) Pulse Ox O2 Delivery O2 Flow Rate FiO2 06/15/17 08:00 96.8 70 24 135/77 (96) 98 Nasal Cannula 2.0 General Appearance: Alert, Awake, No Acute Distress, Afebrile Eyes: PERRLA Cardiovascular: Regular Rate and Rhythm (With ROCÍO and occasional ectopy.) Respiratory: No Respiratory Distress, Clear to Auscultation GI: Soft and Non-Tender Extremities: Warm, Perfused Integumentary: Generalized Fragile Skin Psych: Appropriate Mood & Affect Assessment and Plan Problems: (1) Fracture of superior pubic ramus Status: Acute Assessment & Plan: Sustained in a fall at home. Dr. Lamar (Ortho) looked at the films of the pelvis and said the patient could weight bear as tolerated. She was seen by therapy for mobilization/safety during her stay. She was placed on analgesics for help with pain control. She has been showing very slow progress. PT/OT recommended further rehabilitation before trying to go home. She has been transferred to [facility] for ongoing rehabilitative therapy. (2) Alcoholic dementia Status: Chronic Assessment & Plan: She is felt to have chronic alcoholic dementia per records reviewed from [facility]. (3) Hypothyroid Status: Chronic Assessment & Plan: Per Dr. Bernstein's record she had been on levothyroxine 100mcg daily. Her TSH was essentially zero. The dose has been reduced to 50mcg based on the TSH. Repeat needed in 4-6 weeks. (4) GERD (gastroesophageal reflux disease) Status: Chronic Assessment & Plan: Per Dr. Bernstein's records she is on pantoprazole 40mg daily. (5) COPD (chronic obstructive pulmonary disease) Status: Chronic Assessment & Plan: The patient takes Proair and Anoro Ellipta at home per Dr. Bernstien's record. She is supposed to be on O2 continuously, but often presents to his clinic without it. Oxygen saturations are often in the 70% range off oxygen per Dr. Bernstein's office records. We will have her on albuterol and Advair while she is here. (6) Depression Status: Chronic Assessment & Plan: Per Dr. Bernstein's records the patient has been on mirtazapine rapidis 15mg at . It is currently being held due to recurrent falls. (7) Diastolic CHF, chronic Status: Chronic Assessment & Plan: Echo done at [facility] 03/10/17 showed EF of 55-60%. Also noted were mild MR, mild TR, R ventricular systolic pressure of 45-50mmHg and grade II/ diastolic dysfunction. Continue carvedilol and lisinopril. (8) CHRONIC ATRIAL FIBRILLATION Status: Chronic Assessment & Plan: She is now in a regular rhythm by exam. She does have occasional ectopy Over replacement for hypothyroidism might have contributed to the development of a fib. Echocardiogram in February at [facility] showed an EF of 55 % with grade II diastolic dysfunction. Continue Coreg. She had not been on any medication for stroke prophylaxis secondary to recurrent falls and alcoholism. (9) UTI (urinary tract infection) Status: Acute Assessment & Plan: Urine culture grew Klebsiella oxytoca sensitive to Levaquin and she will be treated for 7 days. Time Spent on Plan of Care: < 30 min YOLY SIN MD Jun 15, 2017 09:45
[2017-06-15] MEDS: LEVOFLOXACIN 500 MG TAB PO SCH (09:51)
[2017-06-15] MEDS: ACETAMINOPHEN 500 MG TAB PO PRN (14:31)
[2017-06-15 16:37] VITALS: BP 142/77
[2017-06-15] MEDS: PATCH REMOVAL 1 EA TOP SCH (21:00)
[2017-06-15] MEDS: MELATONIN 3 MG TAB PO SCH (21:01)
[2017-06-16] MEDS: LEVOTHYROXINE SOD 0.05 MG TAB PO SCH (06:05)
[2017-06-16 08:32] VITALS: BP 138/75
[2017-06-16] MEDS: PANTOPRAZOLE SOD 40 MG TABEC PO SCH (08:34)
[2017-06-16] MEDS: FOLIC ACID/CYANOCOB/PYRIDOXINE PO SCH (08:34)
[2017-06-16] MEDS: LISINOPRIL 10 MG TAB PO SCH (08:34)
[2017-06-16] MEDS: CARVEDILOL 6.25 MG TAB PO SCH ×2 (08:34→20:23)
[2017-06-16] MEDS: ACETAMINOPHEN 500 MG TAB PO PRN (08:35)
[2017-06-16] MEDS: guaiFENesin 600 MG TABCR PO SCH ×2 (08:35→20:23)
[2017-06-16] MEDS: POLYSACCHARIDE IRON COM 150 MG PO SCH ×2 (08:35→17:30)
[2017-06-16] MEDS: NICOTINE 7 MG/24 HR PATCH TD SCH (08:35)
[2017-06-16] MEDS: LIDOCAINE 5% PATCH TP SCH (08:39)
[2017-06-16] MEDS: PATCH REMOVAL 1 EA TP SCH (08:39)
[2017-06-16] MEDS: LEVOFLOXACIN 500 MG TAB PO SCH (09:32)
[2017-06-16 17:30] VITALS: BP 126/79
[2017-06-16] MEDS: MELATONIN 3 MG TAB PO SCH (20:23)
[2017-06-16] MEDS: PATCH REMOVAL 1 EA TOP SCH (20:23)
[2017-06-17] MEDS: LEVOTHYROXINE SOD 0.05 MG TAB PO SCH (05:49)
[2017-06-17 07:30] VITALS: BP 138/57
[2017-06-17] MEDS: POLYSACCHARIDE IRON COM 150 MG PO SCH ×2 (08:36→17:22)
[2017-06-17] MEDS: guaiFENesin 600 MG TABCR PO SCH ×2 (08:36→21:01)
[2017-06-17] MEDS: FOLIC ACID/CYANOCOB/PYRIDOXINE PO SCH (08:36)
[2017-06-17] MEDS: LISINOPRIL 10 MG TAB PO SCH (08:36)
[2017-06-17] MEDS: CARVEDILOL 6.25 MG TAB PO SCH ×2 (08:36→21:01)
[2017-06-17] MEDS: PANTOPRAZOLE SOD 40 MG TABEC PO SCH (08:36)
[2017-06-17] MEDS: NICOTINE 7 MG/24 HR PATCH TD SCH (08:37)
[2017-06-17] MEDS: LIDOCAINE 5% PATCH TP SCH (08:37)
[2017-06-17] MEDS: PATCH REMOVAL 1 EA TP SCH (08:45)
[2017-06-17] MEDS: LEVOFLOXACIN 500 MG TAB PO SCH (10:17)
[2017-06-17 17:10] VITALS: BP 133/78
[2017-06-17] MEDS: PATCH REMOVAL 1 EA TOP SCH (21:00)
[2017-06-17] MEDS: MELATONIN 3 MG TAB PO SCH (21:01)
[2017-06-17] MEDS: ACETAMINOPHEN 500 MG TAB PO PRN (22:20)
[2017-06-18] MEDS: LEVOTHYROXINE SOD 0.05 MG TAB PO SCH (05:52)
[2017-06-18 08:12] VITALS: BP 135/74
[2017-06-18] MEDS: FOLIC ACID/CYANOCOB/PYRIDOXINE PO SCH (08:17)
[2017-06-18] MEDS: guaiFENesin 600 MG TABCR PO SCH ×2 (08:17→20:35)
[2017-06-18] MEDS: LISINOPRIL 10 MG TAB PO SCH (08:17)
[2017-06-18] MEDS: NICOTINE 7 MG/24 HR PATCH TD SCH (08:17)
[2017-06-18] MEDS: CARVEDILOL 6.25 MG TAB PO SCH ×2 (08:17→20:35)
[2017-06-18] MEDS: POLYSACCHARIDE IRON COM 150 MG PO SCH ×2 (08:17→17:42)
[2017-06-18] MEDS: PANTOPRAZOLE SOD 40 MG TABEC PO SCH (08:17)
[2017-06-18] MEDS: LIDOCAINE 5% PATCH TP SCH (08:19)
[2017-06-18] MEDS: PATCH REMOVAL 1 EA TP SCH (08:19)
[2017-06-18 16:05] VITALS: BP 137/81
[2017-06-18] MEDS: PATCH REMOVAL 1 EA TOP SCH (20:32)
[2017-06-18] MEDS: ACETAMINOPHEN 500 MG TAB PO PRN (20:35)
[2017-06-18] MEDS: MELATONIN 3 MG TAB PO SCH (20:35)
[2017-06-19] MEDS: LEVOTHYROXINE SOD 0.05 MG TAB PO SCH (05:33)
[2017-06-19 07:45] VITALS: BP 136/76
[2017-06-19] MEDS: CELECOXIB 100 MG CAP PO PRN (08:41)
[2017-06-19] MEDS: FOLIC ACID/CYANOCOB/PYRIDOXINE PO SCH (08:41)
[2017-06-19] MEDS: POLYSACCHARIDE IRON COM 150 MG PO SCH ×2 (08:41→17:26)
[2017-06-19] MEDS: NICOTINE 7 MG/24 HR PATCH TD SCH (08:41)
[2017-06-19] MEDS: PANTOPRAZOLE SOD 40 MG TABEC PO SCH (08:42)
[2017-06-19] MEDS: CARVEDILOL 6.25 MG TAB PO SCH ×2 (08:42→20:27)
[2017-06-19] MEDS: LIDOCAINE 5% PATCH TP SCH (08:42)
[2017-06-19] MEDS: LISINOPRIL 10 MG TAB PO SCH (08:42)
[2017-06-19] MEDS: guaiFENesin 600 MG TABCR PO SCH ×2 (08:42→20:27)
[2017-06-19] MEDS: PATCH REMOVAL 1 EA TP SCH (08:56)
[2017-06-19 15:40] VITALS: BP 133/83
[2017-06-19 20:10] VITALS: BP 138/79
[2017-06-19] MEDS: PATCH REMOVAL 1 EA TOP SCH (20:21)
[2017-06-19] MEDS: MELATONIN 3 MG TAB PO SCH (20:27)
[2017-06-19] MEDS: ACETAMINOPHEN 500 MG TAB PO PRN (20:28)
[2017-06-20] MEDS: LEVOTHYROXINE SOD 0.05 MG TAB PO SCH (05:37)
--- NOTE | 2017-06-20 08:26 | Hospitalist Depart ---
Discharge Summary Reason for Hosp/Final Diag: (1) Fracture of superior pubic ramus Status: Acute Hospital Course & Plan: Sustained in a fall at home. Dr. Lamar (Ortho) looked at the films of the pelvis and said the patient could weight bear as tolerated. She has been working with physical and occupational therapy. Home health will be ordered on discharge. (2) Alcoholic dementia Status: Chronic Hospital Course & Plan: She is felt to have chronic alcoholic dementia per records reviewed from [facility]. (3) Hypothyroid Status: Chronic Hospital Course & Plan: Per Dr. Bernstein's record she had been on levothyroxine 100mcg daily. Her TSH was essentially zero. The dose has been reduced to 50mcg. She will require a repeat TSH in 4 weeks. (4) GERD (gastroesophageal reflux disease) Status: Chronic Hospital Course & Plan: She is on pantoprazole 40mg daily. (5) COPD (chronic obstructive pulmonary disease) Status: Chronic Hospital Course & Plan: The patient takes Proair and Anoro Ellipta at home per Dr. Bernstein's record. She is supposed to be on O2 continuously, but often presents to his clinic without it. Oxygen saturations are often in the 70% range off oxygen per Dr. Bernstein's office records. We will have her on albuterol and Advair while she is here. (6) Depression Status: Chronic Hospital Course & Plan: Per Dr. Bernstein's records the patient has been on mirtazapine rapidis 15mg at . It is currently being held due to recurrent falls. (7) Diastolic CHF, chronic Status: Chronic Hospital Course & Plan: Echo done at [facility] 03/10/17 showed EF of 55-60%. Also noted were mild MR, mild TR, R ventricular systolic pressure of 45-50mmHg and grade II/ diastolic dysfunction. Continue carvedilol and lisinopril. (8) CHRONIC ATRIAL FIBRILLATION Status: Chronic Hospital Course & Plan: She is now in a regular rhythm by exam. She does have occasional ectopy Over replacement for hypothyroidism might have contributed to the development of a fib. Echocardiogram in February at [facility] showed an EF of 55 % with grade II diastolic dysfunction. Continue Coreg. She had not been on any medication for stroke prophylaxis secondary to recurrent falls and alcoholism. (9) UTI (urinary tract infection) Status: Acute Hospital Course & Plan: Urine culture grew Klebsiella oxytoca sensitive to Levaquin and she will be treated for 7 days. Departure Latest Vital Signs Vital Signs 06/19/17 06/19/17 06/19/17 06/20/17 15:40 20:10 20:27 02:10 Temp 97.5 Pulse 79 Resp 16 B/P (MAP) 138/79 (98) Pulse Ox 86 O2 Delivery Room Air O2 Flow Rate 1.0 Weight (Pounds): 108 Weight (Ounces): 15.0 Condition: Improved PT/OT Follow Up For: PT Evaluation and Treat Home Health RN Follow Up For: Nursing Assessment Discharge Instructions Home Meds Active Scripts Melatonin (MELATONIN) 3 Mg Tablet, 3 MG PO QHS for 30 Days, TAB Prov:TYLER SIN MD 06/04/17 Lidocaine (Lidocaine) 5 % Adh..patch, 1 EACH TP QDAY for 30 Days, PATCH.24H Prov:TYLER SIN MD 06/04/17 Levothyroxine Sodium (LEVOTHYROXINE SODIUM) 50 Mcg Tablet, 0.05 MG PO QDAY@06 for 30 Days, TAB Prov:TYLER SIN MD 06/04/17 Celecoxib (CELEBREX) 100 Mg Capsule, 100 MG PO Q12H Y for pain for 30 Days, CAPSULE Prov:TYLER SIN MD 06/04/17 Lisinopril (LISINOPRIL) 10 Mg Tablet, 10 MG PO QDAY, #30 TAB 5 Refills Prov:ELIAS BERNSTEIN MD 04/20/17 Carvedilol (CARVEDILOL) 6.25 Mg Tab, 0.5 TAB PO BID, #30 TAB 3 Refills Prov:ELIAS BERNSTEIN MD 04/20/17 Pantoprazole Sodium (PANTOPRAZOLE SODIUM) 40 Mg Tablet.dr, 40 MG PO QDAY, #30 TAB.SR 6 Refills Prov:ELIAS BERNSTEIN MD 04/20/17 Albuterol Sulfate 90 Mcg/Act (PROAIR HFA 90 MCG/ACT) 8.5 Gm Hfa.aer.ad, 2 PUFF IH Q4-6H Y for SHORTNESS OF BREATH, #1 INHALER 3 Refills Prov:ELIAS BERNSTEIN MD 03/24/17 Discontinued Scripts Oxycodone Hcl (OXYCODONE HCL) 5 Mg Tablet, 5 MG PO Q6H Y for PAIN for 30 Days, TAB Prov:TYLER SIN MD 06/04/17 Acetaminophen (ACETAMINOPHEN) 500 Mg Tablet, 1000 MG PO Q8H Y for PAIN for 30 Days, TAB Prov:TYLER SIN MD 06/04/17 Umeclidinium Brm/Vilanterol Tr (Anoro Ellipta 62.5-25 Mcg INH) 1 Each Disk.w.dev , 1 PUFF INH QDAY, #1 INHALER 6 Refills Prov:ELIAS BERNSTEIN MD 03/24/17 Diet: Regular Activity: As Tolerated, With Walker, No Driving Special Instructions: Copies to: ELIAS BERNSTEIN MD Venous Thromboembolism Antithrombotics Is Pt On Any Antithrombotics?: No Fner-qh-Ymym Certification Face to Face Home Health Certification Institutional Provider conducted the [id number] encounter. Electronic Undersigning Physician Certifies Home Health. I certify that the patient has been under my care and that I had a bloj-sv-boef encounter that meets the physician kllt-oo-rlyz encounter requirements with this patient. This patient is home-bound due to safety issues and continues to require assistance with ADL's. I certify that based on my findings, that Nursing, Aides and the following Home Health services are medically necessary: Medical Necessity: Nursing, Rehab Date Face to Face Conducted: Jun 20, 2017 AYO GAMEZ DO Jun 20, 2017 08:26
[2017-06-20 08:36] VITALS: BP 164/90
[2017-06-20] MEDS: PANTOPRAZOLE SOD 40 MG TABEC PO SCH (08:38)
[2017-06-20] MEDS: guaiFENesin 600 MG TABCR PO SCH (08:38)
[2017-06-20] MEDS: POLYSACCHARIDE IRON COM 150 MG PO SCH (08:38)
[2017-06-20] MEDS: NICOTINE 7 MG/24 HR PATCH TD SCH (08:39)
[2017-06-20] MEDS: CARVEDILOL 6.25 MG TAB PO SCH (08:39)
[2017-06-20] MEDS: FOLIC ACID/CYANOCOB/PYRIDOXINE PO SCH (08:39)
[2017-06-20] MEDS: LISINOPRIL 10 MG TAB PO SCH (08:39)
[2017-06-20] MEDS: PATCH REMOVAL 1 EA TP SCH (09:00)
[2017-06-20] MEDS: LIDOCAINE 5% PATCH TP SCH (09:00)
--- NOTE | 2017-06-20 11:02 | OT ECF NOTE ---
Type of Note: Discharge Note Primary Medical Diagnosis: Superior/ inferior pubic ramus fracture on right side Occupational Therapy Evaluation Date: 06-06-17 SUBJECTIVE: Prior Hospitalization: Pt. was admitted to [facility] medical from 05/31/17 to 06/04. Prior Level of Function: Pt. states she had no outside services for assistance prior to fall. Prior Living Status: Alone Community Services: pt. states none prior to fall Home Accessibility: 3-4 stairs to enter, 8 stairs to basement. Pt has tub/ shower on main level and [id number] in basement (which she prefers). Pt's daughter (Elis) reports that pt does not shower unless family is present. Equipment Owned: [employer] and Cane Medical Complications/Past Medical History: please refer to chart for details Psychosocial Support: A jagfoe-oy-mlz, nephew and brother in [place]. 1 daughter in [place] and 1 daughter in [place]. Pain Scale (0-10): 3/10 in pelvis with mobility OBJECTIVE: Strength: MMT: Right Left Shoulder Flexion WFL WFL Elbow Flexion WFL WFL Wrist Extension WFL WFL Lead Manufacturing Technician WFL WFL (5= normal, 4= good, 3= fair, 2= poor, 1= trace) ROM: Both upper extremities, WFL Functional Transfer: Assistive Device: Front wheeled walker Transfer Ability: Modified Independent-Pt frequently does not utilize RW or adhere to recommendation for donning O2. Pt educated and aware of importance of O2 24/7 but adamantly refuses to adhere. ADL: Upper body dressing: Assistive device: Upper body dressing ability: Independent Lower body dressing: Assistive device: Creche Attendant Lower body dressing ability: Pt refusing to engage in LB dressing with OT. Pt reporting that she can do LB dressing (I)ly. Educated pt on refuse laborer for LB dressing. Toileting: Assistive device: Grab bars Toileting ability: Modified Independent Grooming/hygiene: Assistive device: None Grooming ability: Independent Bathing: Assistive device: Pt's daughter Elis reports that pt will not shower unless family is present. Bathing ability: N/T Standardized Assessment: Phoenix Index of Activities of Daily Living- Pt. scored a 9/20 on this Index upon evaluation. Pt scored a 17/20 upon discharge (06/20/17). ASSESSMENT: Pt. is a 81 year old female s/p fall at home suffering a superior/ inferior right side pubic ramus fracture on 05/31/17 at home. Pt. resides in [facility] [place]. Pt has improved with (I) for ADLs and endurance for mobility during skilled OT services. She continues to require v/c's for safety with RW and O2 management. However, she has elected to discharge home at current level of function with no outside services. Recommendations for HH services, [facility], [facility], and [facility] have been encouraged throughout tx sessions. Pt refusing all services and reports adequate support from local family. Problem List/Current Limitations: Pain Decreased WB Decreased activity anna Decreased sensation Decreased coordination Generalized weakness Poor safety awareness Memory deficits Short Term Goals: 1. Pt. to perform toileting activities with Mod I. GOAL MET. 2. Pt. to perform showering activities with Min A. GOAL NOT ADDRESSED. 3. Pt. to perform dressing activities with Min A. Pt refusing to address goal. 4. Pt. to perform g/h activities with I. GOAL MET. 5. Pt. to increase Phoenix Index score of ADL by 2 points. GOAL MET. Glass Etcher Helper Goals: Return home with / assist provided by daughter who visits frequently from [place]. Patient Goals: Return home Rehabilitation Prognosis: Fair Barriers to Discharge: cognition, resides alone PLAN: The patient will discharge home at current level of function with recommendations provided for M[facility], HH, and [facility]. Pt refusing all services and reports adequate support at home from local family. Thank you for this referral. If you have any questions, concerns, or comments about this report or plan, please contact me at . Dede Mcrae MS, OTR/L Occupational Therapist ANUJA
--- NOTE | 2017-06-20 12:40 | PT ECF NOTE ---
Type of Note: Discharge Summary Primary Medical Diagnosis: Superior/ inferior pubic ramus fracture on right side Physical Therapy Evaluation Date: 06-06-17 Physical Therapy Discharge Date: 06-20-17 SUBJECTIVE: Prior Hospitalization: Pt. was admitted to [facility] medical from 05/31/17 to 06/04. Prior Level of Function: Pt. states she had no outside services for assistance prior to fall. Prior Living Status: Alone Community Services: pt. states none prior to fall Home Accessibility: 3-4 stairs Equipment Owned: [employer] Medical Complications/Past Medical History: please refer to chart for details Psychosocial Support: Pt's sister in law resides in [place] [facility]. Pt's daughter lives in [place] Pain Scale (0-10): Unknown OBJECTIVE: Strength: Pt elected to d/c home prior to final assessment ROM: Pt elected to d/c home prior to final assessment Sensation: no paresthesias reported Other Neuro findings: n/a Bed Mobility: Sotero Transfers: SBA with RW Gait: SBA x300' with RW Stairs: Roberto/CGA x 4 stairs Timed Up and Go (>12 seconds indicated increased risk for falls):Pt elected to d/c home prior to final assessment 10 meter walk test (0.6m/second cannot function independently): n/a Other Objective Measures: n/a ASSESSMENT: Yanelis has made progress towards functional goals and demonstrated improved functional activity tolerance, but decreased safety awareness. The patient was frequently re-educated on the importance of use of supplemental O2 at all times. The patient elected to discharge home prior to meeting PT goals and without recommended services in place. It was recommended that the patient discharge home with home health care services as well as assistance from her daughter upon initial discharge. The patient elected to d/c home today with unknown amount of assistance from her ex sister in law and other family members , she refused [facility] services. Problem List/Current Limitations: Pain, Decreased strength, Decreased balance, Poor safety awareness and impulsive behavior Short Term Goals: 1. Pt to anna ambulation with adequate pain control x 150' with least restrictive device and modified indep (not met) 2. Pt to be modified indep with bed mobility and sit to/from supine transfers (met) 3. Pt to be modified indep with sit to/from stand transfers from a variety of surfaces (not met) 4. Pt to anna up/down platform step with proper safety awareness and least restrictive device, with SBA/CGA. (not met) Counter Former Goals: Pt to return home with appropriate level of assistance for safety (not met) Patient Goals: Return home with assist from family (partially met) PLAN: The patient discharged home prior to PT recommendation and with no services in place. Per EMR, she will receive assistance from her ex sister in law and other family members. Thank you for this referral. If you have any questions, concerns, or comments about this report or plan, please contact me at . Reva Hernandez, PT, DPT MTDD
== END 2017-06-20 10:40 | disposition home or self-care (01) | DRG 560 ==
LOC: SWB 11:49 → UNDOADMIN 11:49
PROVIDERS: ADMIT Internal Medicine; ATTEND Internal Medicine
DX: S32.511D Fracture of superior rim of right pubis, subsequent encounter for fracture with routine healing (principal); F10.27 Alcohol dependence with alcohol-induced persisting dementia; I50.32 Chronic diastolic (congestive) heart failure; N39.0 Urinary tract infection, site not specified; S32.591D Other specified fracture of right pubis, subsequent encounter for fracture with routine healing; E03.9 Hypothyroidism, unspecified; K21.9 Gastro-esophageal reflux disease without esophagitis; J44.9 Chronic obstructive pulmonary disease, unspecified; E78.5 Hyperlipidemia, unspecified; G62.9 Polyneuropathy, unspecified; K58.9 Irritable bowel syndrome, unspecified; R09.02 Hypoxemia; I11.0 Hypertensive heart disease with heart failure; F17.210 Nicotine dependence, cigarettes, uncomplicated; F32.9 Major depressive disorder, single episode, unspecified; I48.2 Chronic atrial fibrillation; B96.1 Klebsiella pneumoniae [K. pneumoniae] as the cause of diseases classified elsewhere; W01.0XXD Fall on same level from slipping, tripping and stumbling without subsequent striking against object, subsequent encounter; Y92.009 Unspecified place in unspecified non-institutional (private) residence as the place of occurrence of the external cause; Y99.8 Other external cause status; Z88.8 Allergy status to other drugs, medicaments and biological substances; Z85.828 Personal history of other malignant neoplasm of skin; Z91.14 Patient's other noncompliance with medication regimen
CPT/HCPCS: 36415; 81001; 82040; 82247; 82310; 82374; 82435; 82565; 82607; 82728; 82746; 82947; 83540; 83550; 84075; 84132; 84155; 84295; 84450; 84460; 84520; 85025; 85045; 87077; 87088; 87186; 97161; 97165; Q0169

== ENCOUNTER → 2017-06-27 | Outpatient (CLI) | payer MEDICARE, OTHER ==
[2017-06-01 14:41] VITALS: BMI 17.9
[2017-06-27 10:55] LABS: PLATELET COUNT, AUTOMATED 488 K/uL (150-450)
== END ==
LOC: LAB 10:26
PROVIDERS: ATTEND Internal Medicine
DX: F10.27 Alcohol dependence with alcohol-induced persisting dementia (principal); I10 Essential (primary) hypertension; S32.519A Fracture of superior rim of unspecified pubis, initial encounter for closed fracture; E03.9 Hypothyroidism, unspecified; M81.0 Age-related osteoporosis without current pathological fracture; D64.9 Anemia, unspecified
CPT/HCPCS: 36415; 82040; 82247; 82306; 82310; 82374; 82435; 82565; 82728; 82947; 83540; 83550; 84075; 84132; 84155; 84295; 84439; 84443; 84450; 84460; 84520; 85025

== ENCOUNTER 2017-07-25 16:00 | Emergency (ER) | payer MEDICARE, OTHER ==
[2017-06-01 14:41] VITALS: BMI 17.9
--- NOTE | 2017-07-25 16:08 | ER Report ---
History and Physical Time Seen By MD: 16:08 HPI/ROS CHIEF COMPLAINT: Abdominal pain, cough HISTORY OF PRESENT ILLNESS: 81-year-old female patient presents to emergency room with complaint of abdominal pain and cough. Patient states that she has not felt well for the past several days. She states that the abdominal pain started today. She denies having any fevers or chills. She states she's not had any nausea or vomiting. She's not had any diarrhea. Patient states that she has not taken any medication for this. She denies having any changes to her medication. She states she has had a dry cough, she states the cough has been very persistent. She denies any shortness of breath or chest pain. REVIEW OF SYSTEMS: Respiratory: As noted above Cardiovascular: No chest pain, no palpitations. Gastrointestinal: As noted above Musculoskeletal: No back pain. Allergies: Coded Allergies: codeine (Verified Allergy, Mild, UNKNOWN, 05/31/17) Patient states "That was so long ago" Home Meds Active Scripts Levothyroxine Sodium (LEVOTHYROXINE SODIUM) 50 Mcg Tablet, 0.05 MG PO QDAY@06 for 30 Days, #30 TAB 6 Refills Prov:ELIAS BARNES MD 06/27/17 Celecoxib (CELEBREX) 100 Mg Capsule, 100 MG PO Q12H Y for pain for 30 Days, #60 CAPSULE 5 Refills Prov:ELIAS BARNES MD 06/27/17 Melatonin (MELATONIN) 3 Mg Tablet, 3 MG PO QHS for 30 Days, TAB Prov:TYLER SMITH MD 06/04/17 Pantoprazole Sodium (PANTOPRAZOLE SODIUM) 40 Mg Tablet.dr, 40 MG PO QDAY, #30 TAB.SR 6 Refills Prov:ELIAS BARNES MD 04/20/17 Albuterol Sulfate 90 Mcg/Act (PROAIR HFA 90 MCG/ACT) 8.5 Gm Hfa.aer.ad, 2 PUFF IH Q4-6H Y for SHORTNESS OF BREATH, #1 INHALER 3 Refills Prov:ELIAS BARNES MD 03/24/17 Discontinued Scripts Lisinopril (LISINOPRIL) 10 Mg Tablet, 10 MG PO QDAY, #30 TAB 5 Refills Prov:ELIAS BARNES MD 04/20/17 Carvedilol (CARVEDILOL) 6.25 Mg Tab, 0.5 TAB PO BID, #30 TAB 3 Refills Prov:ELIAS BARNES MD 04/20/17 Past Medical/Surgical History Patient has a past medical history of hypertension, pneumonia, constipation, GI bleed, cholecystitis, right elbow fracture, hypothyroidism, alcohol use, depression, skin cancer, lung cancer. Patient has surgical history of skin cancer removal, back surgery, hysterectomy , cholecystectomy, appendectomy, right upper lobectomy. Patient has a family medical history of cancer, CAD, stroke, diabetes. Reviewed Nurses Notes: Yes Hx Smoking: Yes (1 PACK DAILY) Smoking Status: Current: Every Day Smoker, Heavy Tobacco Smoker Exposure to Second Hand Smoke?: No Hx Substance Use Disorder: No Hx Alcohol Use: Yes Constitutional Vital Sign - Last 24 Hours 07/25/17 07/25/17 07/25/17 07/25/17 16:15 19:33 19:47 20:12 Temp 98.5 Pulse 102 96 94 Resp 13 20 16 16 B/P (MAP) 113/64 125/72 (89) 124/65 (84) 129/61 (83) Pulse Ox 100 98 98 96 O2 Delivery Nasal Cannula Nasal Cannula Nasal Cannula Nasal Cannula O2 Flow Rate 2 2 2 Intake and Output 07/25/17 07/25/17 07/26/17 14:59 22:59 06:59 Intake Total 150 ml Output Total 10 ml Balance 140 ml Physical Exam General Appearance: The patient is alert, has no immediate need for airway protection and no current signs of toxicity. Respiratory: Chest is non tender, lungs are slightly diminished in the right lung to auscultation. Cardiac: regular rate and rhythm Gastrointestinal: Abdomen is soft and tender in the right lower quadrant, no masses, bowel sounds normal. Musculoskeletal: Neck: Neck is supple and non tender. Extremities have full range of motion and are non tender. Skin: No rashes or lesions. DIFFERENTIAL DIAGNOSIS: After history and physical exam differential diagnosis was considered for abdominal pain including but not limited to appendicitis, cholecystitis, gastritis and urinary tract infection. Included in the differential is pneumonia, bronchitis. Medical Decision Making Data Points Result Diagram: 07/25/17 1602 07/25/17 1917 Laboratory Hematology Test 07/25/17 16:02 07/25/17 16:46 07/25/17 19:17 Red Blood Count 3.32 M/uL (4.17-5.56) Mean Corpuscular Volume 91.8 fL (80.0-96.0) Mean Corpuscular Hemoglobin 30.8 pg (26.0-33.0) Mean Corpuscular Hemoglobin Concent 33.5 g/dL (32.0-36.0) Red Cell Distribution Width 16.5 % (11.5-14.5) Mean Platelet Volume 7.2 fL (7.2-11.1) Neutrophils (%) (Auto) 88.2 % (39.4-72.5) Lymphocytes (%) (Auto) 5.4 % (17.6-49.6) Monocytes (%) (Auto) 5.7 % (4.1-12.4) Eosinophils (%) (Auto) 0.4 % (0.4-6.7) Basophils (%) (Auto) 0.3 % (0.3-1.4) Nucleated RBC Relative Count (auto) 0.0 /100WBC Neutrophils # (Auto) 17.4 K/uL (2.0-7.4) Lymphocytes # (Auto) 1.1 K/uL (1.3-3.6) Monocytes # (Auto) 1.1 K/uL (0.3-1.0) Eosinophils # (Auto) 0.1 K/uL (0.0-0.5) Basophils # (Auto) 0.1 K/uL (0.0-0.1) Nucleated RBC Absolute Count (auto) 0.01 K/uL Peripheral Blood Smear Yes Y/N Troponin I < 0.012 ng/ml C-Reactive Protein 20.8 mg/dl (<1.0) Amylase Level 51 U/L (0-110) Lipase 59 U/L (23-300) Urine Color Yellow Urine Clarity Clear Urine pH 7.0 pH (4.8-9.5) Urine Specific [place] 1.019 Urine Protein Negative mg/dL (NEGATIVE) Urine Glucose (UA) Negative mg/dL (NEGATIVE) Urine Ketones Negative mg/dL (NEGATIVE) Urine Blood Negative (NEGATIVE) Urine Nitrite Negative (NEGATIVE) Urine Bilirubin Negative (NEGATIVE) Urine Urobilinogen 4.0 mg/dL (0.2-1.9) Urine Leukocyte Esterase Negative (NEGATIVE) Urine RBC <1 /HPF (0-2/HPF) Urine WBC <1 /HPF (0-5/HPF) Urine Squamous Epithelial Cells None /LPF (NONE-FEW) Urine Bacteria Negative /HPF (NONE-FEW) Urine Mucus None /HPF (NONE-FEW) Sodium Level 133 mmol/L (137-145) Potassium Level 4.6 mmol/L (3.5-5.0) Chloride Level 100 mmol/L (98-107) Carbon Dioxide Level 24 mmol/L (22-31) Blood Urea Nitrogen 11 mg/dl (7-18) Creatinine 0.60 mg/dl (0.52-1.04) Glomerular Filtration Rate Calc > 60.0 Random Glucose 97 mg/dl (75-110) Calcium Level 7.9 mg/dl (8.4-10.2) Total Bilirubin 0.3 mg/dl (0.2-1.3) Aspartate Amino Transf (AST/SGOT) 40 U/L (0-35) Alanine Aminotransferase (ALT/SGPT) 34 U/L (0-56) Alkaline Phosphatase 176 U/L (0-126) Total Protein 6.7 gm/dl (6.3-8.2) Albumin 2.7 g/dl (3.5-5.0) Chemistry Test 07/25/17 16:02 07/25/17 16:46 07/25/17 19:17 White Blood Count 19.7 k/uL (4.5-11.0) Red Blood Count 3.32 M/uL (4.17-5.56) Hemoglobin 10.2 g/dL (12.0-16.0) Hematocrit 30.5 % (34.0-47.0) Mean Corpuscular Volume 91.8 fL (80.0-96.0) Mean Corpuscular Hemoglobin 30.8 pg (26.0-33.0) Mean Corpuscular Hemoglobin Concent 33.5 g/dL (32.0-36.0) Red Cell Distribution Width 16.5 % (11.5-14.5) Platelet Count 771 K/uL (150-450) Mean Platelet Volume 7.2 fL (7.2-11.1) Neutrophils (%) (Auto) 88.2 % (39.4-72.5) Lymphocytes (%) (Auto) 5.4 % (17.6-49.6) Monocytes (%) (Auto) 5.7 % (4.1-12.4) Eosinophils (%) (Auto) 0.4 % (0.4-6.7) Basophils (%) (Auto) 0.3 % (0.3-1.4) Nucleated RBC Relative Count (auto) 0.0 /100WBC Neutrophils # (Auto) 17.4 K/uL (2.0-7.4) Lymphocytes # (Auto) 1.1 K/uL (1.3-3.6) Monocytes # (Auto) 1.1 K/uL (0.3-1.0) Eosinophils # (Auto) 0.1 K/uL (0.0-0.5) Basophils # (Auto) 0.1 K/uL (0.0-0.1) Nucleated RBC Absolute Count (auto) 0.01 K/uL Peripheral Blood Smear Yes Y/N Troponin I < 0.012 ng/ml C-Reactive Protein 20.8 mg/dl (<1.0) Amylase Level 51 U/L (0-110) Lipase 59 U/L (23-300) Urine Color Yellow Urine Clarity Clear Urine pH 7.0 pH (4.8-9.5) Urine Specific [place] 1.019 Urine Protein Negative mg/dL (NEGATIVE) Urine Glucose (UA) Negative mg/dL (NEGATIVE) Urine Ketones Negative mg/dL (NEGATIVE) Urine Blood Negative (NEGATIVE) Urine Nitrite Negative (NEGATIVE) Urine Bilirubin Negative (NEGATIVE) Urine Urobilinogen 4.0 mg/dL (0.2-1.9) Urine Leukocyte Esterase Negative (NEGATIVE) Urine RBC <1 /HPF (0-2/HPF) Urine WBC <1 /HPF (0-5/HPF) Urine Squamous Epithelial Cells None /LPF (NONE-FEW) Urine Bacteria Negative /HPF (NONE-FEW) Urine Mucus None /HPF (NONE-FEW) Glomerular Filtration Rate Calc > 60.0 Calcium Level 7.9 mg/dl (8.4-10.2) Total Bilirubin 0.3 mg/dl (0.2-1.3) Aspartate Amino Transf (AST/SGOT) 40 U/L (0-35) Alanine Aminotransferase (ALT/SGPT) 34 U/L (0-56) Alkaline Phosphatase 176 U/L (0-126) Total Protein 6.7 gm/dl (6.3-8.2) Albumin 2.7 g/dl (3.5-5.0) Urinalysis Test 07/25/17 16:46 Urine Color Yellow Urine Clarity Clear Urine pH 7.0 pH (4.8-9.5) Urine Specific [place] 1.019 Urine Protein Negative mg/dL (NEGATIVE) Urine Glucose (UA) Negative mg/dL (NEGATIVE) Urine Ketones Negative mg/dL (NEGATIVE) Urine Blood Negative (NEGATIVE) Urine Nitrite Negative (NEGATIVE) Urine Bilirubin Negative (NEGATIVE) Urine Urobilinogen 4.0 mg/dL (0.2-1.9) Urine Leukocyte Esterase Negative (NEGATIVE) Urine RBC <1 /HPF (0-2/HPF) Urine WBC <1 /HPF (0-5/HPF) Urine Squamous Epithelial Cells None /LPF (NONE-FEW) Urine Bacteria Negative /HPF (NONE-FEW) Urine Mucus None /HPF (NONE-FEW) EKG/Imaging EKG Interpretation 12 lead EKG: Rhythm: Sinus tachycardia with PACs [place]: normal QRS: normal ST segments: normal Imaging CHEST W CONTRAST History: Abdomen pain TECHNIQUE: Contiguous axial images were performed through the chest to the level of the adrenal glands following the administration of IV contrast. Coronal and sagittal reformatting was also performed. Dose Lowering Technique One of the following dose optimization techniques was utilized in the performance of this exam: Automated exposure control; adjustment of the mA and/ or kV according to the patient's size; or use of an iterative reconstruction technique. Specific details can be referenced in the facility's radiology CT exam operational policy. Contrast: 75 mL Isovue-370 COMPARISON STUDIES: CTA chest the 2014. Lungs / Pleura: Again noted are postsurgical changes from a right upper lobectomy. There is dense airspace consolidation seen throughout the right middle lobe and the upper portion of the right lower lobe. Confluent soft tissue density material surrounds the right hilum and bronchovascular bundles to the right middle lobe and right lower lobe. There are multiple low- attenuation ovoid areas within the dense airspace consolidation which could represent necrosis. Mediastinum/nodes: There are small AP window and precarinal lymph nodes that appears similar to the prior study. Heart and vessels: negative. Musculoskeletal / Body wall: There is a dextroconvex scoliosis of the thoracic spine. Sclerotic density along the right side of T10 remained stable Upper abdomen: There is a large amount of fecal material seen in the visualized proximal right-sided colon which will be discussed in a separate report. There is thickening the adrenal glands bilaterally. Common bile duct is dilated at 1.6 cm at the head the pancreas. There appears to been a cholecystectomy. Subcentimeter hypodensity upper pole the left kidney too small to characterize IMPRESSION: Post surgical changes from a right upper lobectomy. There is now dense airspace consolidation throughout the right middle lobe upper portion right lower lobe confluent soft tissue density material surrounding the right hilum in the bronchovascular bundles to the right middle lobe and right lower lobe. Although this could represent an extensive infectious process or neoplasm is included in the differential diagnosis Multiple low-attenuation ovoid areas within the dense airspace consolidation could represent areas of necrosis or abscess Please see today's CT of the abdomen and pelvis dictation for additional findings Report Dictated By: Natalia Cheung MD at 07/25/2017 5:42 PM Report E-Signed By: Natalia Cheung MD at 07/25/2017 5:52 PM ABDOMEN/PELVIS WITH CONTRAST HISTORY: abdominal pain TECHNIQUE: Following administration of IV contrast contiguous axial images acquired through the abdomen/pelvis. Coronal and sagittal reformatting also performed. Dose Lowering Technique One of the following dose optimization techniques was utilized in the performance of this exam: Automated exposure control; adjustment of the mA and/ or kV according to the patient's size; or use of an iterative reconstruction technique. Specific details can be referenced in the facility's radiology CT exam operational policy. CONTRAST: 75 mL Isovue-370 COMPARISON: MR the abdomen June 26, [address] abdomen pelvis July 24, 2013 FINDINGS: Visualized lung bases: Please see today's CT of the chest dictation for significant findings Hepatobiliary: There are postsurgical changes from a cholecystectomy. Common bile duct is dilated up to 1.6 cm in diameter although appears less dilated when compared to the prior MR . There is intrahepatic or ductal dilatation relatively unchanged. Spleen: Negative. Adrenals: Mild thickening the adrenal glands again noted Pancreas: Pancreas appears atrophic Kidneys ureters or bladder: Bilateral renal cysts again seen subcentimeter hypodensity upper pole the left kidney too small to characterize. There is 1.1 cm round hypodensity lower pole the right kidney slightly increased in size when compared the prior CT at which time this measured 9 mm and appears indeterminate Genitalia: There appears to been a hysterectomy GI: Small hiatal hernia Diverticulosis left-sided colon although no CT evidence of acute diverticulitis. There is a large amount of fecal material seen in the right- sided the colon. The cecum has a cephalad location Vessels/spaces/nodes: There are moderate vascular calcifications present Bones/soft tissues: There is a levoconvex scoliosis of the lumbar spine and postsurgical changes at L4 and L5 that appears similar to the prior study. There are vertebroplasty changes at L2 and extensive spondylotic changes with the remainder the lumbar spine Additional findings: None pertinent. IMPRESSION: Please see today's CT of the chest dictation for significant findings Post surgical changes from a cholecystectomy with intra and extrahepatic biliary ductal dilatation Chronic mild thickening the adrenal glands There is a 1.1 cm round hypodensity lower pole the right kidney which is slightly increased in size when compared the prior study and is indeterminate in nature. Small hiatal hernia Diverticulosis left-sided colon Large amount of fecal material in the right-sided colon which can be seen with constipation Additional chronic findings as described Report Dictated By: Natalia Cheung MD at 07/25/2017 5:52 PM Report E-Signed By: Natalia Cheung MD at 07/25/2017 6:01 PM ED Course/Re-evaluation ED Course Patient was admitted to exam room, history and physical were obtained. Differential diagnoses were considered. On exam lungs were diminished in the right lung., Patient had tenderness in the right lower quadrant. A CBC, CMP, urinalysis, CRP, troponin, EKG, chest x-ray and CT scan of the abdomen and pelvis were ordered. Patient had an elevated white count of 19,000 with a left shift, CMP showed an elevated potassium of 5.5, urinalysis was unremarkable, CRP was elevated at 20.8. Troponin was negative. EKG showed a sinus tachycardia. CT scan abdomen and pelvis was done, when they were doing that they noted significant amount of consolidation the right lung, they called over and asked if I would take a look at it. When I saw I did cancel the chest x-ray and ordered a CT scan of the chest. CT scan of the chest showed significant consolidation of the right middle lobe as well as the right lower lobe, there were some ovoid areas that were considered by the radiologist to be either areas of necrosis or abscess. I discussed case with Dr. Smith, hospitalist, he felt that this patient should be in the care of the surgeon and felt that likely the patient would need to be transferred to a higher level of care. I then discussed the case with Dr. Quinn, general surgeon, who felt that with the abscesses being in the lungs himself the patient should be transferred to a higher level of care with cardiothoracic surgery. At that time I discussed the case with Dr. Lilly, hospitalist at [facility], he wanted me to discuss this with cardiothoracic surgeon make sure there is something like to be taken care of at their hospital. I spoke with Dr. Sifuentes, cardiothoracic surgeon at [facility], he did feel this is something that could be managed at their hospital and preferred that the patient be admitted to the emergency room. He discussed the case with Dr. Moore, ER physician, and after he was to speak with him that I spoke with him. He did agree to accept the patient for admission. Patient did have blood cultures done here in the emergency room. She received a dose of Zosyn IV and a repeat CMP was ordered. I discussed with patient that she will be transferred over to [facility] and she verbalized understanding and agreement with plan. I also spoke with the patient's daughter, Elis Leong, and informed her that she was going to transferred to [place]. She also verbalized understanding and agreement with plan. Her other daughter is Ana Laura Dean [phone]. Decision to Disposition Date: July 25, 2017 Decision to Disposition Time: 19:46 Depart Departure Latest Vital Signs Vital Signs Date Time Temp Pulse Resp B/P (MAP) Pulse Ox O2 Delivery O2 Flow Rate FiO2 07/25/17 20:12 16 129/61 (83) 96 Nasal Cannula 2 07/25/17 19:47 94 07/25/17 16:15 98.5 Impression: Primary Impression: Pneumonia Additional Impression: Pulmonary abscess Condition: Condition Unchanged Disposition: XFER TO ACUTE CARE HOSPITAL Referrals: ELIAS BARNES MD (PCP) Problem Qualifiers Primary Impression: Pneumonia Pneumonia type: due to unspecified organism Laterality: right Lung location : middle lobe of lung Qualified Codes: J18.1 - Lobar pneumonia, unspecified organism Additional Impression: Pulmonary abscess Pulmonary abscess pneumonia presence: with pneumonia Laterality: right Lung location: middle lobe of lung Qualified Codes: J85.1 - Abscess of lung with pneumonia MORENA TOLBERT July 25, 2017 16:08
[2017-07-25] MEDS ORDERED: NS(*) 0.9% 500 ML BAG 500 ML IV ONE (16:14)
[2017-07-25] MEDS ORDERED: IOPAMIDOL 76% 75 ML INFUS BTL 75 ML ONE ×2 (16:26→17:21)
--- NOTE | 2017-07-25 16:28 | EKG ---
FACILITY: [facility] PATIENT NAME: SARAI DORANTES : [id number] MR: [id number] V: [id number] EXAM DATE: ORDERING PHYSICIAN: MOREAN TOLBERT TECHNOLOGIST: Marcus Fatima Reason : Blood Pressure : / mmHG Vent. Rate : 102 BPM Atrial Rate : 102 BPM P-R Int : 130 ms QRS Dur : 072 ms QT Int : 334 ms P-R-T Axes : 054 056 038 degrees QTc Int : 435 ms Sinus tachycardia with premature atrial complexes Possible Left atrial enlargement Artifact in several leads - repeat if needed Borderline ECG Confirmed by TYLER SIN ([id number]) on 07/26/2017 5:51:33 AM Referred By: Confirmed By:TYLER SIN
[2017-07-25 16:31] LABS: PLATELET COUNT, AUTOMATED 771 K/uL (150-450)
[2017-07-25] MEDS ORDERED: NS 0.9% 150 ML BAG 150 ML ONE (17:21)
--- NOTE | 2017-07-25 17:55 | RADIOLOGY IMAGING REPORT ---
FACILITY: [facility] PATIENT NAME: Yanelis Leong : 1935 MR: [id number] V: [id number] EXAM DATE: ORDERING PHYSICIAN: MORENA TOLBERT TECHNOLOGIST: Location: [facility] [place] Patient: Yanelis Leong : 1935 Visit/Account:[id number] Date of Sevice: 07/25/2017 CHEST W CONTRAST History: Abdomen pain TECHNIQUE: Contiguous axial images were performed through the chest to the level of the adrenal gla nds following the administration of IV contrast. Coronal and sagittal reformatting was also perform ed. Dose Lowering Technique One of the following dose optimization techniques was utilized in the performance of this exam: Autom ated exposure control; adjustment of the mA and/or kV according to the patient's size; or use of an i terative reconstruction technique. Specific details can be referenced in the facility's radiology C T exam operational policy. Contrast: 75 mL Isovue-370 COMPARISON STUDIES: CTA chest the 2014. Lungs / Pleura: Again noted are postsurgical changes from a right upper lobectomy. There is dense airspace consolidation seen throughout the right middle lobe and the upper portion of the right lower lobe. Confluent soft tissue density material surrounds the right hilum and bronchovascular bundles to the right middle lobe and right lower lobe. There are multiple low-attenuation ovoid areas within the dense airspace consolidation which could represent necrosis. Mediastinum/nodes: There are small AP window and precarinal lymph nodes that appears similar to the prior study. Heart and vessels: negative. Musculoskeletal / Body wall: There is a dextroconvex scoliosis of the thoracic spine. Sclerotic de nsity along the right side of T10 remained stable Upper abdomen: There is a large amount of fecal material seen in the visualized proximal right-side d colon which will be discussed in a separate report. There is thickening the adrenal glands bilater ally. Common bile duct is dilated at 1.6 cm at the head the pancreas. There appears to been a gemini cystectomy. Subcentimeter hypodensity upper pole the left kidney too small to characterize IMPRESSION: Post surgical changes from a right upper lobectomy. There is now dense airspace consolidation throughout the right middle lobe upper portion right lower lobe confluent soft tissue density material surrounding the right hilum in the bronchovascular bundle s to the right middle lobe and right lower lobe. Although this could represent an extensive infectio us process or neoplasm is included in the differential diagnosis Multiple low-attenuation ovoid areas within the dense airspace consolidation could represent areas of necrosis or abscess Please see today's CT of the abdomen and pelvis dictation for additional findings Report Dictated By: Natalia Cheung MD at 07/25/2017 5:42 PM Report E-Signed By: Natalia Cheung MD at 07/25/2017 5:52 PM COLLINN:AMICIVN
--- NOTE | 2017-07-25 18:06 | RADIOLOGY IMAGING REPORT ---
FACILITY: [facility] PATIENT NAME: Yanelis Leong : 1935 MR: [id number] V: [id number] EXAM DATE: ORDERING PHYSICIAN: MORENA TOLBERT TECHNOLOG[place] [facility] [place] Yanelis Le[place] : 1935 Visit/Account:[id number] Date of Sevice: 07/25/2017 ABDOMEN/PELVIS WITH CONTRAST HISTORY: abdominal pain TECHNIQUE: Following administration of IV contrast contiguous axial images acquired through the abdom en/pelvis. Coronal and sagittal reformatting also performed. Dose Lowering Technique One of the following dose optimization techniques was utilized in the performance of this exam: Autom ated exposure control; adjustment of the mA and/or kV according to the patient's size; or use of an i terative reconstruction technique. Specific details can be referenced in the facility's radiology C T exam operational policy. CONTRAST: 75 mL Isovue-370 COMPARISON: MR the abdomen June 26, [address] abdomen pelvis July 24, 2013 FINDINGS: Visualized lung bases: Please see today's CT of the chest dictation for significant findings Hepatobiliary: There are postsurgical changes from a cholecystectomy. Common bile duct is dilated u p to 1.6 cm in diameter although appears less dilated when compared to the prior MR . There is intr ahepatic or ductal dilatation relatively unchanged. Spleen: Negative. Adrenals: Mild thickening the adrenal glands again noted Pancreas: Pancreas appears atrophic Kidneys ureters or bladder: Bilateral renal cysts again seen subcentimeter hypodensity upper pole the left kidney too small to characterize. There is 1.1 cm round hypodensity lower pole the right kidne y slightly increased in size when compared the prior CT at which time this measured 9 mm and appears indeterminate Genitalia: There appears to been a hysterectomy GI: Small hiatal hernia Diverticulosis left-sided colon although no CT evidence of acute diverticulitis. There is a large am ount of fecal material seen in the right-sided the colon. The cecum has a cephalad location Vessels/spaces/nodes: There are moderate vascular calcifications present Bones/soft tissues: There is a levoconvex scoliosis of the lumbar spine and postsurgical changes at L4 and L5 that appears similar to the prior study. There are vertebroplasty changes at L2 and extens gertrude spondylotic changes with the remainder the lumbar spine Additional findings: None pertinent. IMPRESSION: Please see today's CT of the chest dictation for significant findings Post surgical changes from a cholecystectomy with intra and extrahepatic biliary ductal dilatation Chronic mild thickening the adrenal glands There is a 1.1 cm round hypodensity lower pole the right kidney which is slightly increased in size w hen compared the prior study and is indeterminate in nature. Small hiatal hernia Diverticulosis left-sided colon Large amount of fecal material in the right-sided colon which can be seen with constipation Additional chronic findings as described Report Dictated By: Natalia Cheung MD at 07/25/2017 5:52 PM Report E-Signed By: Natalia Cheung MD at 07/25/2017 6:01 PM SEAMUS:PAMELA
[2017-07-25] MEDS ORDERED: PIPERACILLIN/TAZO* 4.5 GM VIAL 4.5 GM in NS(*) 0.9% 100 ML ADDVANT BAG 100 ML IVPB ONE (18:55)
[2017-07-25 20:12] VITALS: BP 129/61
== END 2017-07-25 20:21 | disposition short-term general hospital (02) ==
LOC: ER 16:14
DX: J85.1 Abscess of lung with pneumonia (principal); J18.1 Lobar pneumonia, unspecified organism
CPT/HCPCS: 36415; 71260; 74177; 81001; 82150; 83690; 84484; 85025; 86140; 87040; 93005; 96374; 99285; A4353; J2543; J7040; J7050; Q9967; 82040; 82247; 82310; 82374; 82435; 82565; 82947; 84075; 84132; 84155; 84295; 84450; 84460; 84520

== ENCOUNTER → 2017-07-25 | Outpatient (CLI) | payer MEDICARE, OTHER ==
[2017-06-01 14:41] VITALS: BMI 17.9
[~2017-07-25] MED LIST changes: -OXYC-375 PO; +OXYC1TAB78 PO
== END ==
LOC: AMB 15:46
PROVIDERS: ATTEND Nurse Practitioner
DX: R10.11 Right upper quadrant pain (principal); R53.1 Weakness; R00.0 Tachycardia, unspecified; R09.02 Hypoxemia
CPT/HCPCS: A0425; A0427

== ENCOUNTER → 2017-07-25 | Outpatient (CLI) | payer MEDICARE, OTHER ==
[2017-06-01 14:41] VITALS: BMI 17.9
== END ==
LOC: AMB 20:12
PROVIDERS: ATTEND Nurse Practitioner
DX: J85.1 Abscess of lung with pneumonia (principal)
CPT/HCPCS: A0425; A0426